=== PATIENT | female | born 1950 | race Caucasian/White ===

== ENCOUNTER → 2018-08-25 | Outpatient (CLI) | payer MEDICARE ==
--- NOTE | 2018-08-29 12:05 | BMR ---
EXAMINATION TYPE: MR breast BILAT wo/w con, US breast axilla RT DATE OF EXAM: 08/25/2018 COMPARISON: Outside imaging dated 06/29/2018 HISTORY: Rt breast ca, palpable lump rt upper outer quadrant, recent biopsy TECHNIQUE: A series of fat and water weighted images in the long and short axis views of both breasts are obtained in conjunction with dynamic contrast MRI with subtraction technique. The patient was i njected with 7 mL intravenous Gadavist gadolinium contrast. Three-dimensional and additional postpr ocessing imaging is created on independent workstation and reviewed during official interpretation of this study. FINDINGS: The breasts are composed of scattered fibroglandular tissue and there is mild bilateral sym metric background parenchymal enhancement. Within the upper outer quadrant of the right breast at the 9:00 position there is a 2.4 x 1.9 x 2.3 cm enhancing mass with spiculated margins at middle depth. The biopsy marker is noted to be at the lateral margin of the mass as there is susceptibility artifac t present. The anterior lateral margin of the mass there is a 3 mm focus that appears to be connected to the primary mass. Just cranial to this mass there is T2 hyperintense and T1 hypointense nonenhanc ing edema. No other suspicious masses are seen within the breasts. No suspicious nonmass enhancement is seen within either breast. No suspicious internal mammary adenop athy within either breast. There is a lymph node within the upper outer quadrant of the right breast in the axillary tail that although only measures 5 mm in short axis appears somewhat rounded in morph ology and is slightly suspicious. This is located approximately 9 cm posterior to the index mass. Oth er bilateral axillary lymph nodes appear nonsuspicious containing fatty rubia. There is a punctate T2 hyperintense nonenhancing probable hepatic cyst. Complementary targeted right upper outer quadrant axillary tail/axillary ultrasound was performed pre operatively to further assess the rounded 5 mm short axis axillary tail lymph node. This appears morp hologically normal on ultrasound with a thin cortex measuring up to 1.5 mm. Findings were discussed w ith the surgeon prior to lumpectomy. IMPRESSION: BI-RADS [id number] right breast carcinoma. The primary mass measures 2.4 cm at the 9:00 position with contiguous 3 mm focus at the anterolateral margin of the mass LT also surgically excised due to the proximity. After targeted right axillary tail ultrasound there are no suspicious intramammary, a xillary or internal mammary lymph nodes within either breast. No MRI evidence of malignancy within th e left breast.
== END | disposition home or self-care (01) ==
LOC: RADMRIMAIN 15:43
PROVIDERS: ATTEND Surgery
DX: C50.411 Malignant neoplasm of upper-outer quadrant of right female breast (principal)
CPT/HCPCS: 82565; 0159T; C8908; A9585; 77059

== ENCOUNTER 2018-08-26 06:35 | Day surgery (SDC) | payer MEDICARE ==
[2018-08-24 08:36] VITALS: BMI 31.2
--- NOTE | 2018-08-25 15:11 | P.GSHP ---
History of Present Illness H&P Date: 08/25/18 Chief Complaint: Right breast cancer 68-year-old female well-known to our service. 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 Ultrasound suggested subcentimeter size however review of the recent mammogram suggests this is 2-3 cm in size. Patient interested in breast conservation. She had a recent second opinion consultation at [facility] and MRI was advised. MRI was subsequently ordered and is being performed later this evening. Patient is ER/WA positive HER-2/leah negative. Past Medical History Past Medical History: Cancer, Hyperlipidemia, Thyroid Disorder Additional Past Medical History / Comment(s): Right breast cancer. History of Any Multi-Drug Resistant Organisms: None Reported Past Surgical History: Bariatric Surgery Past Anesthesia/Blood Transfusion Reactions: No Reported Reaction Past Psychological History: No Psychological Hx Reported Smoking Status: Never smoker Past Alcohol Use History: None Reported Past Drug Use History: None Reported - Past Family History Mother Family Medical History: Cancer Medications and Allergies Home Medications Medication Instructions Recorded Confirmed Type Levothyroxine Sodium [Synthroid] 150 mcg PO SUTUTHSA 08/24/18 08/24/18 History Pravastatin Sodium [Pravachol] 20 mg PO HS 08/24/18 08/24/18 History Allergies Allergy/AdvReac Type Severity Reaction Status Date / Time No Known Allergies Allergy Verified 08/24/18 08:38 Surgical - Exam Physical exam: General: Well-developed, well-nourished HEENT: Normocephalic, sclerae nonicteric Abdomen: Nontender, nondistended Extremities: No edema Neuro: Alert and oriented Right breast with mild induration upper outer quadrant, no adenopathy Left breast without masses or adenopathy Assessment and Plan (1) Breast cancer, right Narrative/Plan: Await MRI findings later this evening. Spoke to radiology. They will review these films immediately tomorrow morning prior to any surgical intervention. Tentatively we will plan right breast lumpectomy with wire localization biopsy, sentinel lymph node injection and biopsy with possible axillary node dissection. Risks of bleeding, infection, seroma, nerve injury, potential need for additional surgeries, positive margins, scarring, dimpling, pain were reviewed with the patient. She is agreeable and wishes to proceed. Certainly MRI findings could change our plans for tomorrow if other abnormalities identified. Status: Acute Code(s): C50.911 - MALIGNANT NEOPLASM OF UNSP SITE OF RIGHT FEMALE BREAST SNOMED Code(s): 806050486
[~2018-08-26 06:35] MED LIST: DEXAMETHASONE SOD PHOSPHATE 10 MG/ML 1 ML VIAL IV ONE; HEPARIN SODIUM,PORCINE 5,000 UNIT/ML 1 ML VIAL SQ ONE; HYDROmorphone 0.5 MG/0.5 ML SYRINGE IVP PRN; LACTATED RINGERS 1,000 ML IV SCH; MIDAZOLAM (PF) 2 MG/2 ML VIAL IV PRN; ONDANSETRON 4 MG/2 ML VIAL IVP ONE; Pre Op ABX Message 1 EACH MISC MISCELLANE ONE
--- NOTE | 2018-08-26 07:50 | P.HPADDEND ---
H&P Addendum H&P Addendum Date: 08/26/18 Patient here today for elective right breast lumpectomy with sentinel lymph node biopsy. Patient's MRI was done late last night. I discussed the MRI results with Dr. Coon this morning by phone. The primary tumor measures approximately 2.4 cm in size. The contralateral breast and axilla appeared normal. The remainder of the right breast shows no definite abnormalities. There is a single suspicious lymph node measuring approximately 5 mm in the axillary tail. No additional suspicious adenopathy is seen. The patient I discussed these MRI findings. We discussed the options of preoperative core biopsy of this 5 mm lymph node. If that I see came back showing lymph node metastasis the option of neoadjuvant treatment would be then offered. The alternative option of proceeding with surgical intervention at this time was once again reviewed. I discussed with radiology the option of wire localization of that suspicious node if it can be seen on ultrasound. The patient is not interested in neoadjuvant chemotherapy at this time. I think it is reasonable to proceed with planned lumpectomy with sentinel lymph node biopsy and possible wire localization of the suspicious node. Patient will clearly be seen by oncology postoperatively to help make determination regarding possible adjuvant chemotherapy.
[2018-08-26 08:15] VITALS: TEMP 97.8
[2018-08-26] MEDS ORDERED: LIDOCAINE 1% INJ 10MG/ML (20 ML MDV) SQ ONE (08:30)
[2018-08-26] MEDS ORDERED: SODIUM BICARB 4% 5 ML VIAL (0.48 MEQ/ML) MISCELLANE ONE (08:30)
[2018-08-26] MEDS ORDERED: fentaNYL (PF) 50 MCG/ML 2 ML AMP ONE (09:06)
[2018-08-26] MEDS ORDERED: MIDAZOLAM 2 MG/2 ML VIAL ONE (09:06)
[2018-08-26] MEDS ORDERED: ceFAZolin IN SWFI 2 GM/20 ML SYRINGE IVP STA (09:06)
[2018-08-26] MEDS ORDERED: PROPOFOL 10 MG/ML 20 ML VIAL IV ONE (09:06)
[2018-08-26] MEDS ORDERED: LIDOCAINE 1% INJ 10MG/ML (20 ML MDV) ONE (09:06)
[2018-08-26] MEDS ORDERED: SODIUM CHLORIDE 0.9% 50 ML with ceFAZolin 2,000 MG IV ONE ×2 (09:25)
[2018-08-26] MEDS ORDERED: LIDOCAINE 2% (PF) 20 MG/ML 10 ML AMP SQ ONE (09:41)
[2018-08-26] MEDS ORDERED: METHYLENE BLUE 10 MG/ML (10 ML VIAL) INJ ONE (09:45)
[2018-08-26] MEDS ORDERED: HYDROcodone/APAP 5-325MG 1 EACH TAB PO PRN (11:09)
[2018-08-26] MEDS ORDERED: NALOXONE 0.4 MG/ML 1 ML VIAL IV PRN (11:09)
--- NOTE | 2018-08-26 11:09 | NM ---
EXAMINATION TYPE: NM sentinel node injection DATE OF EXAM: 08/26/2018 COMPARISON: Outside imaging dated 06/29/2019 HISTORY: Right breast cancer TECHNIQUE AND FINDINGS: The procedure of sentinel lymph node injection was explained to the patient. The benefits, alternatives, and risks were discussed. An informed consent was then obtained. Overlying skin is cleaned with sterile alcohol. Following this, 495 uCi Tc99m Tilmanocept was inject ed in the upper outer aspect of the right nipple intradermally. The patient tolerated the procedure well without any immediate complication. The patient was kept in the radiology department for short stay after the procedure and then taken to surgery for surgical p rocedure what is presumed intraoperative gamma probe will be used for sentinel lymph node detection. IMPRESSION: Right breast radiotracer injection for sentinel node localization as above.
--- NOTE | 2018-08-26 11:14 | MM ---
EXAMINATION TYPE: MG pre op needle loc RT, MG surgical specimen RT DATE OF EXAM: 08/26/2018 COMPARISON: Outside imaging dated 06/29/2018 CLINICAL HISTORY: Right breast cancer TECHNIQUE: Needle localization with wire placement and surgical excision of area of concern in the ri ght breast. FINDINGS: The procedure of needle localization with wire placement and than surgical excision was exp lained to the patient. Benefits, alternatives, and risks were discussed. An informed consent was th en obtained. The shortest pathway for procedure was chosen. Shortest pathway was lateral to medial approach. T he overlying skin was prepped and draped in usual sterile fashion. Lidocaine buffered with bicarbona te was used as anesthetic into the skin and subcutaneous tissue up to the level of area of concern. A 7 cm needle was used. It was placed via a lateral medial approach under mammographic guidance. Allen bsequent 90 degrees mammogram show the needle to be in satisfactory position relative to the targeted area. At this point, wire was placed and the needle was withdrawn. The wire was fixed to patient's skin. Images were marked for surgeon. The patient tolerated the procedure well without any immediate complication. The patient was kept in the radiology department for short stay after the procedure and then taken to surgery for surgical e xcision. Targeted mass, biopsy marker and wire are identified in specimen mammogram. Posterior media l margin appears the closest of all margins. The patient was kept in hospital for short stay after th e procedure and then discharged home in stable condition. IMPRESSION: Successful, uncomplicated needle localization with wire placement and surgical excision o f targeted mass, biopsy marker, and wire in the right breast, full pathology results to follow.
--- NOTE | 2018-08-26 11:25 | P.PCN ---
Date of Procedure: 08/26/18 Procedure(s) Performed: PREOPERATIVE DIAGNOSIS: Rectal bleeding POSTOPERATIVE DIAGNOSIS: Hypertrophied anal papilla PROCEDURE: Colonoscopy with snare polypectomy ANESTHESIA: MAC SURGEON: Andrew Kruse M.D. SPECIMENS: Anal papilla ENDOSCOPIC PROCEDURE: The patient was placed on the endoscopy table in the left decubitus position. The Olympus colonoscope was inserted into the anus and passed under direct visualization to the base of the cecum. The appendiceal orifice was visualized. From that point the scope was slowly withdrawn inspecting all surfaces carefully. There were no neoplastic inflammatory or polypoid lesions throughout the cecum, ascending, transverse, descending, sigmoid and rectum. Retroflexion at the anus/distal rectum revealed a hypertrophied anal papilla. This was removed using the snare with cautery technique. There was no visible diverticulosis. There were small internal and external hemorrhoids in the right posterior position and anterior position that appeared free of any recent bleeding. The anal papilla itself however was indurated and was likely the source of recent bleeding. The patient 's excessive mucousy drainage may have been on the basis of the papilla. No fistula was identified. Digital rectal examination was otherwise normal. The patient was taken to the recovery room in stable condition per anesthesia guidelines. RECOMMENDATIONS: Await biopsy results. Monitor patient's symptoms.
--- NOTE | 2018-08-26 11:28 | P.OP ---
Date of Procedure: 08/26/18 Procedure(s) Performed: PREOPERATIVE DIAGNOSIS: Right breast cancer POSTOPERATIVE DIAGNOSIS: Same PROCEDURE: Right Breast wire localization lumpectomy with sentinel lymph node biops SURGEON: Uriah EBL: Minimal ANESTHESIA: General COMPLICATIONS: None OPERATIVE PROCEDURE: Patient was placed on the operating room table in the supine position. 2 mL of methylene blue was injected into the subareolar space. The breast was then massaged for 5 minutes. The breast was prepped and draped in usual sterile fashion. The right axilla was addressed at that time. The hot spot in the right axilla was identified. A small curvilinear incision was made using the scalpel. Dissection down through the subcutaneous tissues took place using electrocautery. Using the neoprobe I identified a total of 4 sentinel lymph nodes. 2 of these were blue in color. These were all removed and sent to pathology for close examination. Frozen sections from these lymph nodes were negative for metastatic disease. No bleeding was seen. The subcutaneous tissues were closed using 3-0 Vicryl sutures. The skin was closed using 4-0 Monocryl sutures. The wire entrance site was then addressed. This was present at the 9:00 location. A curvilinear incision was made adjacent to the wire entrance site. I followed the wire down into the breast tissue. An adequate lumpectomy specimen then took place around the wire. Margins of 1.5-2 cm worth attempted to be achieved. Palpation of the specimen suggested that the posterior and inferior margins were somewhat close. I took an additional margin posteriorly and inferiorly and these margins were painted the appropriate color on the new margin side. The initial specimen was also painted the appropriate 6 colors. Clips were used to identify the lumpectomy cavity. The clip was confirmed to be within the lumpectomy specimen by radiology. The subcutaneous tissues were closed using 3-0 Vicryl sutures. The skin was closed using a running 4-0 Monocryl stitch. Skin glue and sterile dressings were then applied. DISPOSITION: Stable to recovery room
[2018-08-26 11:32] VITALS: RESP 18
[2018-08-26] MEDS ORDERED: HYDROcodone/APAP 5-325MG 1 EACH TAB PO ONE (12:19)
[2018-08-26 13:41] VITALS: BP 139/81; PULSE 73
--- NOTE | 2018-09-01 09:32 | USB ---
Reason for exam: additional evaluation requested from prior study. History: Patient is nulliparous. US Breast Axilla RT EXAMINATION TYPE: MR breast BILAT wo/w con, US breast axilla RT DATE OF EXAM: 08/25/2018 COMPARISON: Outside imaging dated 06/29/2018 HISTORY: Rt breast ca, palpable lump rt upper outer quadrant, recent biopsy TECHNIQUE: A series of fat and water weighted images in the long and short axis views of both breasts are obtained in conjunction with dynamic contrast MRI with subtraction technique. The patient was injected with 7 mL intravenous Gadavist gadolinium contrast. Three-dimensional and additional postprocessing imaging is created on independent workstation and reviewed during official interpretation of this study. FINDINGS: The breasts are composed of scattered fibroglandular tissue and there is mild bilateral symmetric background parenchymal enhancement. Within the upper outer quadrant of the right breast at the 9:00 position there is a 2.4 x 1.9 x 2.3 cm enhancing mass with spiculated margins at middle depth. The biopsy marker is noted to be at the lateral margin of the mass as there is susceptibility artifact present. The anterior lateral margin of the mass there is a 3 mm focus that appears to be connected to the primary mass. Just cranial to this mass there is T2 hyperintense and T1 hypointense nonenhancing edema. No other suspicious masses are seen within the breasts. No suspicious nonmass enhancement is seen within either breast. No suspicious internal mammary adenopathy within either breast. There is a lymph node within the upper outer quadrant of the right breast in the axillary tail that although only measures 5 mm in short axis appears somewhat rounded in morphology and is slightly suspicious. This is located approximately 9 cm posterior to the index mass. Other bilateral axillary lymph nodes appear nonsuspicious containing fatty rubia. There is a punctate T2 hyperintense nonenhancing probable hepatic cyst. Complementary targeted right upper outer quadrant axillary tail/axillary ultrasound was performed preoperatively to further assess the rounded 5 mm short axis axillary tail lymph node. This appears morphologically normal on ultrasound with a thin cortex measuring up to 1.5 mm. Findings were discussed with the surgeon prior to lumpectomy. IMPRESSION: BI-RADS [id number] right breast carcinoma. The primary mass measures 2.4 cm at the 9:00 position with contiguous 3 mm focus at the anterolateral margin of the mass LT also surgically excised due to the proximity. After targeted right axillary tail ultrasound there are no suspicious intramammary, axillary or internal mammary lymph nodes within either breast. No MRI evidence of malignancy within the left breast. ASSESSMENT: Benign, BI-RAD 2 RECOMMENDATION: Localization and excision of the right breast.
== END 2018-08-26 13:41 | disposition home or self-care (01) ==
LOC: OR 06:35
PROVIDERS: ATTEND Surgery
DX: C50.411 Malignant neoplasm of upper-outer quadrant of right female breast (principal); Z17.0 Estrogen receptor positive status [ER+]; E78.5 Hyperlipidemia, unspecified; E03.9 Hypothyroidism, unspecified; E66.9 Obesity, unspecified; Z68.31 Body mass index [BMI] 31.0-31.9, adult; Z98.84 Bariatric surgery status; Z79.890 Hormone replacement therapy; Z79.899 Other long term (current) drug therapy
CPT/HCPCS: 76098; 19281; 76642; 38792; 19301; 38525; A9520; J2250; J1644; J1100; J2405; J2001; Q9968; J3010; J0690; J2704

== ENCOUNTER → 2019-01-18 | Outpatient (CLI) | payer MEDICARE ==
--- NOTE | 2019-01-18 14:08 | USB ---
Reason for exam: clinical finding. History: Patient has history of breast cancer at age 68 and is nulliparous. Malignant MG pre op needle loc RT of the right breast, August 26, 2018. 2 lumpectomies of the right breast, August 26, 2018. Indicated problem(s): large axillary lymph nodes in the right breast. Physical Findings: Nurse Summary: right axilla palpable node, 1 x 1cm, movable, non-tender with palpable, 1.5 x 2cm at axilla scar (nurse ts). US Breast Axilla RT Right axilla breast ultrasound demonstrates a 3.8 x 2.6 x 2.6cm oval, cystic lesion at axilla possibly centrally necrotic, biopsy recommended, suspicious, much less likely seroma and a 1.6 x 1.1 x 0.5cm cystic lesion at 10 o'clock possibly small seroma. These results were verbally communicated with the patient and result sheet given to the patient on 01/18/19. ASSESSMENT: Suspicious, BI-RAD 4 RECOMMENDATION: Ultrasound core biopsy of the right breast. (right axilla) Called Dr. Howe with mammographic findings. PRELIMINARY REPORT CALLED AND FAXED TO DR. HOWE ON 01/18/19.
== END | disposition home or self-care (01) ==
LOC: RADUSWWP 12:27
PROVIDERS: ATTEND Internal Medicine Hematology & Oncology
DX: N63.10 Unspecified lump in the right breast, unspecified quadrant (principal); N60.01 Solitary cyst of right breast; Z85.3 Personal history of malignant neoplasm of breast

== ENCOUNTER 2019-01-23 07:47 | Day surgery (SDC) | payer MEDICARE ==
[2019-01-23 08:15] VITALS: TEMP 98
[2019-01-23] MEDS ORDERED: ALPRAZolam 0.25 MG TAB PO ONE (08:17)
[2019-01-23 09:43] VITALS: BP 125/70; PULSE 57; RESP 14
--- NOTE | 2019-01-23 11:09 | US ---
EXAMINATION TYPE: US biopsy soft tissue/muscle, US asp abscess/hemat/cyst DATE OF EXAM: 01/23/2019 HISTORY: Right axillary adenopathy, history of breast cancer, palpable abnormality. FINDINGS: Maximal barrier technique was utilized. The skin overlying a suitable path to the patient' s right axillary adenopathy was localized with ultrasound and the overlying skin prepped and draped. Ultrasound was utilized with sterile technique. Lidocaine was used for local anesthesia. A skin ni ck was made with a scalpel. An 18-gauge needle was advanced under direct ultrasound guidance and cor e specimen obtained of the mass. A poor specimen was obtained likely due to cystic quality of the ad enopathy. Specimen submitted in formalin to Pathology. Fine-needle aspiration then performed using si milar technique with a 21-gauge needle, approximately 10 cc of serous fluid were aspirated and submit sukhdev to pathology. Following the procedure, hemostasis achieved and the patient is discharged in stabl e condition without complication. IMPRESSION:STATUS POST ULTRASOUND GUIDED CORE BIOPSY OF right axillary adenopathy, followed by fine-n eedle aspiration. PATHOLOGY IS PENDING. THIS PROCEDURE IS PERFORMED BY THE UNDERSIGNED.
== END 2019-01-23 09:50 | disposition home or self-care (01) ==
LOC: RADPROMAIN 07:47
PROVIDERS: ATTEND Internal Medicine Hematology & Oncology
DX: R59.0 Localized enlarged lymph nodes (principal); N63.0 Unspecified lump in unspecified breast; Z85.3 Personal history of malignant neoplasm of breast
CPT/HCPCS: 10160; 20206; 38505; 76942; 88173; 88305; 88341; 88342

== ENCOUNTER → 2019-03-20 | Outpatient (CLI) | payer MEDICARE ==
--- NOTE | 2019-03-21 18:51 | BD ---
EXAMINATION TYPE: Axial Bone Density DATE OF EXAM: 03/20/2019 COMPARISON: NONE CLINICAL HISTORY: Breast carcinoma, post menopausal with hormonal replacement therapy Height: 60.50 Weight: 156 FRAX RISK QUESTIONS: Alcohol (3 or more units per day): no Family History (Parent hip fracture): no Glucocorticoids (More than 3mos): no (Ex: prednisone, prednisolone, methylprednisolone, dexamethasone, and hydrocortisone). History of Fracture in Adulthood: yes, finger Secondary Osteoporosis: 1. Type 1 Diabetes: no 2. Hyperthyroidism: possibly; not positively sure 3. Menopause before 45: no 4. Malnutrition: no 5. Chronic liver disease: no Rheumatoid Arthritis: no Current Tobacco Use: no RISK FACTORS HISTORY OF: Family History of Osteoporosis: no Active: yes Diet low in dairy products/other sources of calcium: no Postmenopausal woman: yes Take estrogen and/or progesterone medications: no Lost more than 2 inches in height since high school: no Frequent falls: no Poor Health: no, other than breast CA Hyperparathyroidism: no Adrenal Insufficiency: no MEDICATIONS: Thyroid Medications: yes Which medication: Levothyroxine How Long: about 40 years Osteoporosis Medications: no Additional Medications: cholesterol med Additional History: breast CA; radiation/chemo ; "sleeve" surgery for weight loss; (will start Femara soon, not yet started, hence diagnosis of post-menopause WITH HRT) EXAM MEASUREMENTS: Bone mineral densitometry was performed using the [employer] System. Bone mineral density as measured about the Lumbar spine is: ----- L1-L4(G/cm2): 1.060 T Score Values are as follows: ----- L2: -1.3 ----- L3: -0.4 ----- L4: -1.2 ----- L1-L4: -1.0 Bone mineral density BASELINE Bone mineral density about the R hip (g/cm2): 0.846 Bone mineral density about the L hip (g/cm2): 0.870 T Score values are as follows: -----R Neck: -1.4 -----L Neck: -1.2 -----R Total: -0.6 -----L Total: -0.4 Bone mineral density BASELINE IMPRESSION: Osteopenia (T Score between -2.5 and -1). There is slightly increased risk of fracture and the patient may be considered for treatment. Re-Screen 2-5 years. NOTE: T-SCORE=SD OF THE YOUNG ADULT MEAN.
== END | disposition home or self-care (01) ==
LOC: RADBDWWP 13:06
PROVIDERS: ATTEND Internal Medicine Hematology & Oncology
DX: M85.851 Other specified disorders of bone density and structure, right thigh (principal); M85.852 Other specified disorders of bone density and structure, left thigh; M85.88 Other specified disorders of bone density and structure, other site; C50.411 Malignant neoplasm of upper-outer quadrant of right female breast; Z79.890 Hormone replacement therapy
CPT/HCPCS: 77080

== ENCOUNTER 2019-06-23 09:23 | Day surgery (SDC) | payer MEDICARE ==
[2019-06-22 08:57] VITALS: BMI 30.2
[~2019-06-23 09:23] MED LIST changes: -DEXAMETHASONE SOD PHOSPHATE 10 MG/ML 1 ML VIAL IV ONE; -HEPARIN SODIUM,PORCINE 5,000 UNIT/ML 1 ML VIAL SQ ONE; -HYDROmorphone 0.5 MG/0.5 ML SYRINGE IVP PRN; +LIDOCAINE 1% 20 ML VIAL (10MG/ML) FOR IV START INTRADERMA PRN; -MIDAZOLAM (PF) 2 MG/2 ML VIAL IV PRN; -ONDANSETRON 4 MG/2 ML VIAL IVP ONE; -Pre Op ABX Message 1 EACH MISC MISCELLANE ONE
[2019-06-23 09:41] VITALS: TEMP 97.8
[2019-06-23] MEDS ORDERED: LACTATED RINGERS 1,000 ML IV ONE (09:49)
[2019-06-23] MEDS ORDERED: PROPOFOL 10 MG/ML 20 ML VIAL IV ONE (10:07)
--- NOTE | 2019-06-23 10:30 | P.GSHP ---
History of Present Illness H&P Date: 06/23/19 Chief Complaint: gerd Patient today for upper endoscopy. She has had increasing reflux. She was unable to take her PPIs because of an interaction with her other medications. No vomiting. Past Medical History Past Medical History: Cancer, Hyperlipidemia, Thyroid Disorder Additional Past Medical History / Comment(s): Right breast cancer 2018-surg. & chemo & radiation, abd. pain for last 6 months History of Any Multi-Drug Resistant Organisms: None Reported Past Surgical History: Bariatric Surgery, Breast Surgery Additional Past Surgical History / Comment(s): Right lumpectomy, gastric sleeve Past Anesthesia/Blood Transfusion Reactions: No Reported Reaction Smoking Status: Never smoker - Past Family History Mother Family Medical History: Cancer Medications and Allergies Home Medications Medication Instructions Recorded Confirmed Type Levothyroxine Sodium [Synthroid] 150 mcg PO SUTUTHSA 08/24/18 06/22/19 History Pravastatin Sodium [Pravachol] 20 mg PO HS 08/24/18 06/22/19 History Letrozole [Femara] 2.5 mg PO DAILY 06/22/19 06/22/19 History Oxybutynin ER [Ditropan Xl] 10 mg PO DAILY 06/22/19 06/22/19 History Allergies Allergy/AdvReac Type Severity Reaction Status Date / Time No Known Allergies Allergy Verified 06/22/19 08:39 Surgical - Exam Vital Signs Temp Pulse Resp BP Pulse Ox 97.8 F 67 18 158/69 97 06/23/19 09:40 06/23/19 09:40 06/23/19 09:40 06/23/19 09:40 06/23/19 09:40 Physical exam: General: Well-developed, well-nourished HEENT: Normocephalic, sclerae nonicteric Abdomen: Nontender, nondistended Extremities: No edema Neuro: Alert and oriented Assessment and Plan (1) GERD (gastroesophageal reflux disease) Narrative/Plan: Patient GERD symptoms and history of previous sleeve gastrectomy. We'll proceed with upper endoscopy. Current Visit: Yes Status: Acute Code(s): K21.9 - GASTRO-ESOPHAGEAL REFLUX DISEASE WITHOUT ESOPHAGITIS SNOMED Code(s): 364688071
--- NOTE | 2019-06-23 10:37 | P.PCN ---
Date of Procedure: 06/23/19 Procedure(s) Performed: Preoperative Dx: GERD Postoperative Dx: Gastritis, mild distal esophagitis Procedure: EGD with Bx Anesthesia: Sedation Endoscopist: Dr. Kruse Specimens: Antrum, distal esophagus Endoscopic Procedure: The patient was on the endoscopy table in the left decubitus position. The Olympus gastroscope was inserted into the oropharynx and passed under direct visualization to the region of the third portion of the duodenum. From that point the scope was slowly withdrawn inspecting all surfaces carefully. There were no neoplastic inflammatory or polypoid lesions throughout the duodenum. The pylorus was widely patent. The stomach was carefully inspected. There was stratus present. A biopsy of the antrum took place to rule out H. pylori. No retroflexion took place because of the patient's previous sleeve. The sleeve itself appeared appropriate sized. There was no obvious hiatal hernia seen. At the distal esophagus there was evidence of mild distal esophagitis. There was a non-circumferential area of inflammation. This did not extend more than a few millimeters up above the Z line. There was no evidence of stricture. The remainder the esophagus appear normal. The patient was then taken to the recovery room in stable condition per anesthesia guidelines. Recommendations: Will start Pepcid twice a day. We'll add Carafate if symptoms persist.
[2019-06-23 10:45] VITALS: RESP 16
[2019-06-23 11:15] VITALS: BP 138/75; PULSE 66
== END 2019-06-23 11:19 | disposition home or self-care (01) ==
LOC: ORWHC2ENDO 09:23
PROVIDERS: ATTEND Surgery
DX: K29.50 Unspecified chronic gastritis without bleeding (principal); K22.10 Ulcer of esophagus without bleeding; E78.5 Hyperlipidemia, unspecified; E07.9 Disorder of thyroid, unspecified; C50.919 Malignant neoplasm of unspecified site of unspecified female breast; Z92.21 Personal history of antineoplastic chemotherapy; Z92.3 Personal history of irradiation; Z98.84 Bariatric surgery status; Z79.811 Long term (current) use of aromatase inhibitors; Z79.890 Hormone replacement therapy; Z79.899 Other long term (current) drug therapy
CPT/HCPCS: 43239; 88305; 88342; J2704; 88341

== ENCOUNTER → 2020-06-18 | Outpatient (CLI) | payer MEDICARE ==
[2020-06-18 13:50] VITALS: BMI 30.9
[2020-06-18 15:57] VITALS: BP 164/79; PULSE 69; RESP 16; TEMP 98.3
--- NOTE | 2020-06-18 16:41 | P.BASOAP ---
Subjective Progress Note Date: 06/18/20 Principal diagnosis: Morbid obesity Patient returns for reevaluation. Underwent upper endoscopy last June. Was started on Pepcid twice a day at that time. Patient returns now stating she is having pain after eating in the epigastric region. Some burning. Some reflux. Patient states she has not been taking her antiacids as her prescription ran out. She thinks her symptoms were gone while taking her antiacids. Mild weight gain recently. Denies vomiting. Objective - Vital Signs Vital signs: Vital Signs Temp 98.3 F 06/18/20 15:52 Pulse 69 06/18/20 15:52 Resp 16 06/18/20 15:52 BP 164/79 06/18/20 15:52 Pulse Ox Intake & Output 06/17/20 06/18/20 06/18/20 18:59 06:59 18:59 Weight 74.389 kg - Exam Abdomen: Soft, nontender, nondistended Assessment/Plan (1) GERD (gastroesophageal reflux disease) Narrative/Plan: Patient with epigastric pain and some reflux. Resume antiacid therapy. Patient will contact me if her symptoms do not improve. Follow-up 2 months. Plan: Date: 06/18/20 Initial Weight: 102.058 kg Initial BMI: 42.5 Current Weight: 74.389 kg Current BMI: 30.9 Type of Surgery: Total Volume in Band: Previous Volume: Volume Removed: Volume Added: Band Size:
== END | disposition home or self-care (01) ==
LOC: BARWHC3 13:33
PROVIDERS: ATTEND Surgery
DX: E66.01 Morbid (severe) obesity due to excess calories (principal); K21.9 Gastro-esophageal reflux disease without esophagitis; Z68.41 Body mass index [BMI] 40.0-44.9, adult
CPT/HCPCS: 99211

== ENCOUNTER → 2020-07-08 | Outpatient (CLI) | payer MEDICARE ==
--- NOTE | 2020-07-08 14:57 | MM ---
Reason for exam: additional evaluation requested from prior study. Last mammogram was performed 19 years ago. History: Patient is postmenopausal, has history of breast cancer at age 68, and is nulliparous. Malignant MG pre op needle loc RT of the right breast, August 26, 2018. 2 lumpectomies of the right breast, August 26, 2018. Taking antineoplastic for 2 years. Physical Findings: Nurse did not find any significant physical abnormalities on exam. MG 3D Diag Mammo W/Cad DESTINI Bilateral CC and MLO view(s) were taken. Prior study comparison: January 18, 2019, right breast US breast axilla RT. August 26, 2018, right breast US breast axilla RT. August 25, 2018, bilateral MR breast bilat wo/w con. The breast tissue is heterogeneously dense. This may lower the sensitivity of mammography. Finding: Architectural distortion in the right breast consistent with known lumpectomy changes. There is a chronic nodularity in the right breast. There is no discrete abnormality. These results were verbally communicated with the patient and result sheet given to the patient on 07/08/20. ASSESSMENT: Benign, BI-RAD 2 RECOMMENDATION: Follow-up diagnostic mammogram of both breasts in 1 year.
== END | disposition home or self-care (01) ==
LOC: RADMAMWWP 13:46
PROVIDERS: ATTEND Radiology Radiation Oncology
DX: C50.411 Malignant neoplasm of upper-outer quadrant of right female breast (principal); Z92.3 Personal history of irradiation; Z17.0 Estrogen receptor positive status [ER+]
CPT/HCPCS: 77066; G0279; 77062

== ENCOUNTER → 2020-12-31 | Outpatient (CLI) | payer MEDICARE ==
[2020-12-31 14:41] VITALS: BP 181/84; PULSE 71; TEMP 98.4; BMI 34.2
--- NOTE | 2020-12-31 15:57 | P.BASOAP ---
Subjective Progress Note Date: 12/31/20 Principal diagnosis: Morbid obesity Patient returns for recheck. Was last seen in June. Patient resumed her antiacids and her GERD symptoms and odynophagia resolved. Now taking antiacids once daily. Recently she met with a dietitian at [facility]. She has gained 15 pounds although states she is not eating much at all. Objective - Vital Signs Vital signs: Vital Signs Temp 98.4 F 12/31/20 14:39 Pulse 71 12/31/20 14:39 Resp BP 181/84 12/31/20 14:39 Pulse Ox Intake & Output 12/30/20 12/31/20 12/31/20 18:59 06:59 18:59 Weight 82.1 kg - Exam Abdomen: Soft, nontender, nondistended Assessment/Plan (1) Morbid obesity Narrative/Plan: Patient doing well. She has had some weight gain. Discussed exercise regimen and increasing variety of different exercises. Continue antiacids. Plan: Date: 12/31/20 Initial Weight: 102.058 kg Initial BMI: 42.5 Current Weight: 82.1 kg Current BMI: 34.2 Type of Surgery: Total Volume in Band: Previous Volume: Volume Removed: Volume Added: Band Size:
== END ==
LOC: BARWHC3 13:29
PROVIDERS: ATTEND Surgery
DX: E66.01 Morbid (severe) obesity due to excess calories (principal); Z68.34 Body mass index [BMI] 34.0-34.9, adult
CPT/HCPCS: 99211

== ENCOUNTER → 2021-03-24 | Outpatient (CLI) | payer MEDICARE ==
--- NOTE | 2021-03-24 14:38 | MM ---
Reason for exam: additional evaluation requested from prior study. Last mammogram was performed 9 months ago. History: Patient is postmenopausal, has history of breast cancer at age 68, and is nulliparous. Malignant MG pre op needle loc RT of the right breast, August 26, 2018. 2 lumpectomies of the right breast, August 26, 2018. Taking antineoplastic for 2 years. Physical Findings: Nurse did not find any significant physical abnormalities on exam. MG 3D Diag Mammo W/Cad DESTINI Bilateral CC and MLO view(s) were taken. Prior study comparison: July 08, 2020, bilateral MG 3d diag mammo w/cad DESTINI. July 11, 2001, right breast special view mammogram. There are scattered fibroglandular densities. Right post operative changes. These results were verbally communicated with the patient and result sheet given to the patient on 03/24/21. ASSESSMENT: Benign, BI-RAD 2 RECOMMENDATION: Follow-up diagnostic mammogram of both breasts in 1 year.
--- NOTE | 2021-03-24 15:02 | BD ---
EXAMINATION TYPE: Axial Bone Density DATE OF EXAM: 03/24/2021 COMPARISON: 03.20.2019 CLINICAL HISTORY: 70 YR OLD FEMALE......ICD-10 CODE: Z79.890 POST MENOPAUSAL Height: 60 Weight: 178 FRAX RISK QUESTIONS: Alcohol (3 or more units per day): Family History (Parent hip fracture): Glucocorticoids (More than 3mos): (Ex: prednisone, prednisolone, methylprednisolone, dexamethasone, and hydrocortisone). History of Fracture in Adulthood: Secondary Osteoporosis: 1. Type 1 Diabetes: 2. Hyperthyroidism: 3. Menopause before 45: 4. Malnutrition: 5. Chronic liver disease: Rheumatoid Arthritis: Current Tobacco Use: RISK FACTORS HISTORY OF: RT FINGER AT AGE 52 Postmenopausal woman: YES, IN HER 50s Hyperparathyroidism: NO Adrenal Insufficiency: NO MEDICATIONS: Thyroid Medications: YES, SYNTHROID, FOR ABOUT 50 YRS NOW Additional Medications: HX OF CHEMO AND RADIATION, RT BREAST CANCER, REFLUX MEDS, STATIN FOR CHOLESTE ROL,VIT D AND CALCIUM Additional History: HX OF RT BREAST CANCER, REFLUX, CHOLESTEROL, EXAM MEASUREMENTS: Bone mineral densitometry was performed using the [employer]. Bone mineral density as measured about the Lumbar spine is: ----- L1-L4(G/cm2): 1.146 T Score Values are as follows: ----- L1: -0.4 ----- L2: 0.2 ----- L3: -0.3 ----- L4: -0.7 ----- L1-L4: -0.3 Bone mineral density has: Increased 7.8% since study of: 03.20.2019 Bone mineral density about the R hip (g/cm2): 0.954 Bone mineral density about the L hip (g/cm2): 0.927 T Score values are as follows: -----R Neck: -1.5 -----L Neck: -1.1 -----R Total: -0.4 -----L Total: -0.6 Bone mineral density has: Decreased -0.2% since study of: 03.20.2019 FRAX%s: THERE IS A 14.5% CHANCE FOR A MAJOR OSTEOPOROTIC FX AND A 1.8% FOR HIP......PROBABILITY FO R FX IN 10 YRS TIME IMPRESSION: Osteopenia. NOTE: T-SCORE=SD OF THE YOUNG ADULT MEAN.
== END | disposition home or self-care (01) ==
LOC: RADMAMWWP 13:28
PROVIDERS: ATTEND Internal Medicine Hematology & Oncology
DX: M85.80 Other specified disorders of bone density and structure, unspecified site (principal); N64.89 Other specified disorders of breast; Z78.0 Asymptomatic menopausal state; Z85.3 Personal history of malignant neoplasm of breast
CPT/HCPCS: 77080; 77066; G0279; 77062

== ENCOUNTER → 2021-06-23 | Outpatient (CLI) | payer MEDICARE ==
--- NOTE | 2021-06-23 10:01 | CT ---
EXAMINATION TYPE: CT chest w con DATE OF EXAM: 06/23/2021 COMPARISON: None HISTORY: Right sided lower tenderness. History of breast cancer CT DLP: 518.7 mGycm Automated exposure control for dose reduction was used. CONTRAST: CT scan of the chest is performed with IV Contrast, patient injected with 100 mL of Isovue 300. FINDINGS: LUNGS: Right lower lobe pulmonary mass measuring 3.3 cm in greatest dimension. No additional nodules or masses seen. No volume loss or infiltrate. MEDIASTINUM: There are no greater than 1 cm hilar or mediastinal lymph nodes. No pericardial effusi on is seen. Thoracic aorta is of normal caliber. The heart is not enlarged. UPPER ABDOMEN: Hiatal hernia. Gastric sleeve changes. OTHER: No additional significant abnormality is seen. IMPRESSION: 1. Right lower lobe mass. Correlate with PET/CT.
== END | disposition home or self-care (01) ==
LOC: RADCTMAIN 08:15
PROVIDERS: ATTEND Family Medicine
DX: R91.8 Other nonspecific abnormal finding of lung field (principal); Z85.3 Personal history of malignant neoplasm of breast
CPT/HCPCS: 82565; 84520; 71260; Q9967

== ENCOUNTER → 2021-07-04 | Outpatient (CLI) | payer MEDICARE ==
--- NOTE | 2021-07-07 08:11 | PE ---
EXAMINATION TYPE: PET CT fusion skull to thigh DATE OF EXAM: 07/04/2021 COMPARISON: Chest CT June 23, 2021 HISTORY: Solitary pulmonary nodule, abnormal CT TECHNIQUE: Following the intravenous administration of 8.1 mCi of F-18 FDG, whole body images are pe rformed from the skull base to the midthigh. Images are reviewed on the computer in the coronal, axi al, and sagittal planes. Reconstructed rotating images are created on independent workstation and re viewed on the computer. A localization and attenuation correction CT is performed in conjunction wi th the PET scan. Blood glucose level equals 96 SCAN: Initial Scan FINDINGS: SKULL BASE AND NECK: Enlarged thyroid with heterogeneous increased hypermetabolic uptake, correlate for diffuse goiter and/or hyperthyroidism. No additional areas of abnormal hypermetabolic uptake. CHEST, MEDIASTINUM, AND HILAR REGION: Persistent 3.4 x 2.3 cm right lower lobe mass axial image 98 is ametabolic. No areas of abnormal hypermetabolic uptake. ABDOMEN AND PELVIS: No adrenal masses. No areas of abnormal hypermetabolic uptake. Normal excretion. OSSEOUS STRUCTURES: No abnormal hypermetabolic uptake. OTHER CT: Nasal septum deviated to right of midline. Surgical changes lateral aspect of the right kaylen ast. Surgical changes from gastric sleeve procedure. There is small to moderate size hiatal hernia redemon strated. IMPRESSION: No suspicious hypermetabolic uptake in the persistent 3.4 cm right lower lobe mass. A low -grade neoplasm is not entirely excluded. Advise short-term CT follow-up in 6 months time to reassess .
== END | disposition home or self-care (01) ==
LOC: RADPETMAIN 15:46
PROVIDERS: ATTEND Physician Assistant Medical
DX: R91.1 Solitary pulmonary nodule (principal); R07.81 Pleurodynia; Z85.3 Personal history of malignant neoplasm of breast
CPT/HCPCS: 78815; A9552

== ENCOUNTER → 2021-07-28 | Outpatient (CLI) | payer MEDICARE ==
--- NOTE | 2021-07-28 16:22 | US ---
EXAMINATION TYPE: US thyroid st tissue head/neck DATE OF EXAM: 07/28/2021 COMPARISON: NONE CLINICAL HISTORY: 71-year-old female E04.1 Thyroid nodule. GLAND SIZE: Right Lobe: 6.5x2.9x2.6 cm Overall Parenchyma: Mild heterogenous Left Lobe: 5.8x2.3x2.8 cm Overall Parenchyma: Mild heterogenous Isthmus Thickness: 0.7 cm NODULES RIGHT: # of nodules measured on right: 0 LEFT: # of nodules measured on left: 0 ISTHMUS: # of nodules measured in the isthmus: 0 Bilateral neck scanned, no evidence of lymphadenopathy. IMPRESSION: Thyromegaly with slightly heterogeneous parenchyma may reflect goiter or diffuse thyroiditis. No disc rete nodules.
== END | disposition home or self-care (01) ==
LOC: RADUSWWP 14:10
PROVIDERS: ATTEND Family Medicine
DX: E04.9 Nontoxic goiter, unspecified (principal)
CPT/HCPCS: 76536

== ENCOUNTER → 2021-10-10 | Outpatient (CLI) | payer MEDICARE ==
[2021-10-10 10:24] LABS: African American GFR (CKD) >90 (>60 ml/min/1.73 sqM); Blood Urea Nitrogen 13 mg/dL (7-17); Non-African American GFR(CKD) 84 (>60 ml/min/1.73 sqM)
--- NOTE | 2021-10-10 12:01 | CT ---
EXAMINATION TYPE: CT chest w con DATE OF EXAM: 10/10/2021 COMPARISON: 06/23/2021 and PET/CT 07/04/2021 HISTORY: 71-year-old female Z03.89 Obs mets, C50.411 Lung ca,R91.1 lung nodule. TECHNIQUE: Contiguous axial scanning of the chest after the administration of 100 ml mL of Isovue 300 . Coronal/sagittal reconstructions performed. CT DLP: 551mGycm. Automatic exposure control utilized for a dose reduction. FINDINGS: Spiculated area lateral right breast with surgical clips. Additional surgical clips in the right axil la. Findings suggest postsurgical change. Appropriate ongoing annual mammographic follow-up recommend ed. Heart upper limits of normal in size without pericardial effusion. Ectatic ascending aorta 3.6 cm. There is conventional arterial vessel branching anatomy. Generalized fullness of the thyroid gland. We note recent thyroid ultrasound 07/28/2021. Please refer to findings on that exam. No thoracic lymphadenopathy by CT size criteria. Redemonstrated oval circumscribed 3.6 x 2.8 cm mass of the right lower lobe versus 3.5 x 2.4 cm on . Mixed internal density. Possibly some internal fat density. Some strandy possible atelectasis radiating peripherally from this lesion. No consolidation or pleural effusion. Post surgical change of sleeve gastrectomy. There is a small to moderate-sized hiatal hernia noted. O therwise, visualized upper abdomen shows mild stool burden. Bones: Scattered moderate degenerative disc disease throughout the thoracic spine in addition the low er thoracic spine. IMPRESSION: 1. Mixed density circumscribed mass of the right lower lobe measures 3.6 x 2.8 cm, stable to minimall y increased fullness from three months ago where we measure it at 3.5 x 2.4 cm). Given that there may be some internal fat density, a pulmonary hamartoma is possible. Continued follow-up recommended to exclude low-grade neoplasm. 2. Status post sleeve gastrectomy. Small to moderate size hiatal hernia noted. 3. Surgical changes of prior lumpectomy and right axillary node dissection. Appropriate annual mammog raphic surveillance recommended.
== END | disposition home or self-care (01) ==
LOC: RADCTMAIN 09:35
PROVIDERS: ATTEND Internal Medicine Hematology & Oncology
DX: C50.411 Malignant neoplasm of upper-outer quadrant of right female breast (principal); R91.8 Other nonspecific abnormal finding of lung field; K44.9 Diaphragmatic hernia without obstruction or gangrene; Z93.1 Gastrostomy status
CPT/HCPCS: 82565; 84520; 71260; 36415; Q9967

== ENCOUNTER → 2022-04-16 | Outpatient (CLI) | payer MEDICARE ==
[2022-04-16 11:22] LABS: African American GFR (CKD) >90 (>60 ml/min/1.73 sqM); Blood Urea Nitrogen 12 mg/dL (7-17); Non-African American GFR(CKD) 90 (>60 ml/min/1.73 sqM)
--- NOTE | 2022-04-16 12:53 | CT ---
EXAMINATION TYPE: CT chest w con CT DLP: 472.2 mGycm, Automated exposure control for dose reduction was used. DATE OF EXAM: 04/16/2022 11:47 AM COMPARISON: 10/10/2021 CT, PET/CT 07/04/2022 CLINICAL INDICATION:Female, 72 years old with history of R91.1 lung nodule, Lung nodule TECHNIQUE: Multiple axial images were obtained through the chest. Sagittal and coronal reformats were created for review. Contrast used:70 mL of Isovue 300 with IV Contrast, none. Oral contrast used: none. FINDINGS: LUNGS/ PLEURA: Redemonstration of right lower lobe 4.0 x 2.7 cm mass which is slightly larger in size , previously measuring 2.7 x 2.4 cm on 10/10/2021. No evidence of focal consolidation, pneumothorax or pleural effusion. No new pulmonary nodules. AIRWAY: Patent and unremarkable. HEART:Heart is mildly enlarged for size. There is mild coronary artery atherosclerosis. MEDIASTINUM: No gross evidence of adenopathy. There is a moderate hiatal hernia present. VASCULATURE: No aortic aneurysm. MUSCULOSKELETAL: No acute osseous abnormalities, multilevel disc degeneration changes are seen throug hout the spine. SOFT TISSUES/LYMPH NODES: Surgical clips are seen within the right breast LOWER NECK: No significant findings. UPPER ABDOMEN: Postsurgical changes to the gastric lumen is present consistent with gastric sleeve. IMPRESSION: 1. Interval mild increase in size right lower lobe pulmonary mass, tissue sampling is recommended. N o evidence of mediastinal lymphadenopathy. 2. Moderate hiatal hernia with debris layering within the esophagus correlate for esophageal dysmoti lity/reflux.
== END | disposition home or self-care (01) ==
LOC: RADCTMAIN 10:31
PROVIDERS: ATTEND Internal Medicine Hematology & Oncology
DX: R91.8 Other nonspecific abnormal finding of lung field (principal); K44.9 Diaphragmatic hernia without obstruction or gangrene
CPT/HCPCS: 82565; 84520; 71260; 36415; Q9967

== ENCOUNTER → 2022-05-27 | Outpatient (CLI) | payer MEDICARE ==
--- NOTE | 2022-06-02 08:11 | MM ---
Reason for Exam: Screening (asymptomatic). Last mammogram was performed 1 year(s) and 2 month(s) ago. Patient History: Menarche at age 15. Patient has no children. Postmenopausal. Breast cancer, right, age 68. 08/26/2018, Lumpectomy on the Right side. 08/26/2018, Lumpectomy on the Right side. 08/26/2018, Malignant Core Biopsy on the right side. Prior Study Comparison: 07/11/2001 Right Special View Mammogram, [facility]. 07/08/2020 Bilateral Diagnostic Mammogram, [facility]. 03/24/2021 Bilateral Diagnostic Mammogram, [facility]. Tissue Density: The breast tissue is heterogeneously dense. This may lower the sensitivity of mammography. Findings: Analyzed By CAD. There is no suspicious group of microcalcifications or new suspicious mass in either breast. Stable postoperative distortion upper outer right breast. Overall Assessment: Benign, BI-RAD 2 Management: Screening Mammogram of both breasts in 1 year. A clinical breast exam by your physician is recommended on an annual basis and results should be correlated with mammographic findings. Electronically signed and approved by: Dean Marcus M.D. Radiologis
== END | disposition home or self-care (01) ==
LOC: RADMAMWWP 14:33
PROVIDERS: ATTEND Internal Medicine Hematology & Oncology
DX: Z12.31 Encounter for screening mammogram for malignant neoplasm of breast (principal); Z78.0 Asymptomatic menopausal state; Z85.3 Personal history of malignant neoplasm of breast
CPT/HCPCS: 77063; 77067

== ENCOUNTER 2022-06-11 11:07 | Day surgery (SDC) | payer MEDICARE ==
[2022-06-10 10:23] VITALS: BMI 33.4
[~2022-06-11 11:07] MED LIST changes: +ALBUTEROL NEB (CONC) 2.5 MG/0.5 ML INHALATION ONE; -LIDOCAINE 1% 20 ML VIAL (10MG/ML) FOR IV START INTRADERMA PRN; +LIDOCAINE 2% (PF) 20 MG/ML 5 ML VIAL INHALATION ONE; +LIDOCAINE VISCOUS 300 MG/15 ML CUP MUCOUS MEM ONE; +SODIUM CHLORIDE 0.9% 1,000 ML IV SCH
[2022-06-11] MEDS ORDERED: LACTATED RINGERS 1,000 ML IV ONE ×3 (11:45→14:25)
[2022-06-11 11:47] VITALS: RESP 16
[2022-06-11] MEDS ORDERED: PROPOFOL 10 MG/ML 20 ML VIAL IV ONE (12:51)
[2022-06-11] MEDS ORDERED: fentaNYL (PF) 50 MCG/ML 2 ML AMP ONE (12:51)
[2022-06-11] MEDS ORDERED: MIDAZOLAM 2 MG/2 ML VIAL ONE (12:51)
[2022-06-11] MEDS ORDERED: SUCCINYLCHOLINE CHLORIDE 200 MG/10 ML VIAL IV ONE (12:51)
[2022-06-11] MEDS ORDERED: LIDOCAINE 2% INJ 20 MG/ML (2 ML VIAL) ONE (12:51)
--- NOTE | 2022-06-11 14:07 | P.PCN ---
Date of Procedure: 06/11/22 Preoperative Diagnosis: Right lower lobe mass Postoperative Diagnosis: right lower lobe mass, anterior segment Procedure(s) Performed: navigation bronchoscopy Flexible bronchoscopy and airway inspection Transbronchial biopsy, brushing, transbronchial needle aspirate and the bronchial lavage of the anterior segment of the right lower lobe, using navigation guidance Anesthesia: ERNESTO Surgeon: Gaby Martin Estimated Blood Loss (ml): 0 Pathology: other Condition: stable Disposition: same day Operative Findings: A preoperative CAT scan of the chest was done to map the lung mass using the [employer] navigation system. The appropriate V pads were applied to the patient's chest, and the patient completed the CAT scan and images were uploaded to the computer with the appropriate mapping was done and following that all of this information was transferred into a USB and later on to the navigation tower. This procedure was done under general anesthesia. the indication for the procedure today slowly enlarging right lower lobe mass. Please refer to the most recent CAT scan of the chest and they previous PET scan has been done to evaluate his right lower lobe mass. The biopsies being done upon the request of oncology due to concern of occult malignancy. A consent was obtained. The procedure with them the endoscopy suite under general anesthesia.the patient was intubated and placed on a mechanical ventilator in the usual fashion. The intubation process of the lumbar general anesthesia. Adequate oxygenation and ventilation was achieved prior to initiating the procedure. Following that, an adapter was attached to the little chicken tube and the flexible bronchoscope was advanced through the orotracheal tube and airways infection was normal. A complete airway examination included examination of the distal trachea, mid trachea, bilateral mainstem bronchi, but upper lobe bronchus, right middle lobe bronchus, right lower lobe bronchus, bronchus intermedius and the various 10 segments . Examination of the right lower lobe anterior segment revealed a irr egular, shiny, round like lesion RIGHT anterior segment of the right lower lobe causing obstruction of the segments or at least partial obstruction where the forceps cannot be advanced distal to that lesion. Shiny appearance of the lesion obviously raises the concern for underlying carcinoid tumor. Otherwise, examination of the right side was essentially within normal limits. Later on, the bronchoscope was normal to the left and examination of the left side included the left upper lobe bronchus, left lower lobe bronchus and the various 10 segments on the left. All of this and was operated on within normal limits. On the blockage and was lesions or abnormalities identified. following that, using navigation guidance, the flexible bronchoscope was directed to the anterior segment of the right lower lobe. Under navigation guidance and direct observation, aspart biopsies of the right lower lobe mass was gone. Following that, I performed just monitor needle aspirate of the lesion and transbronchial brushings. At the completion of the procedure, the bronchial lavage of the anterior segment of the right lower lobe with them. A total of a disease of fluid was infused and 10 mL was aspirated without any major difficulties. The procedure was uncomplicated. . There was no evidence of any significant bleeding. Total amount of bleeding was less than 5 mL and the patient underwent the procedure without any major complications intraoperatively.. As such, the bronchoscope was removed and the patient was left anesthesia to be extubated. Post extubation, the patient is going to be transferred to recovery. We'll continue to follow.
[2022-06-11 14:28] VITALS: TEMP 96.9
--- NOTE | 2022-06-11 14:30 | CT ---
EXAMINATION TYPE: CT Chest flor Ybarra Protocol DATE OF EXAM: 06/11/2022 COMPARISON: 04/16/2022 HISTORY: lung mass CT DLP: 580 mGycm Automated exposure control for dose reduction was used. FINDINGS: LUNGS/ PLEURA: Redemonstration of right lower lobe 4.0 x 2.7 cm mass which is slightly larger in size , previously measuring 2.7 x 2.4 cm on 10/10/2021. No evidence of focal consolidation, pneumothorax or pleural effusion. No new pulmonary nodules. AIRWAY: Patent and unremarkable. HEART:Heart is mildly enlarged for size. There is mild coronary artery atherosclerosis. MEDIASTINUM: No gross evidence of adenopathy. There is a moderate hiatal hernia present. VASCULATURE: No aortic an eurysm. MUSCULOSKELETAL: No acute osseous abnormalities, multilevel disc degeneration changes are seen throug hout the spine. SOFT TISSUES/LYMPH NODES: Surgical clips are seen within the right breast LOWER NECK: No significant findings. UPPER ABDOMEN: Postsurgical changes to the gastric lumen is present consistent with gastric sleeve. C orrelate for hiatal hernia IMPRESSION: 1. Interval mild increase in size right lower lobe pulmonary mass, tissue sampling is recommended. No evidence of mediastinal lymphadenopathy. 2. Moderate hiatal hernia with debris layering within the esophagus correlate for esophageal dysmotil ity/reflux.
[2022-06-11 15:14] VITALS: BP 152/84; PULSE 71
== END 2022-06-11 15:25 | disposition home or self-care (01) ==
LOC: ORWHC2ENDO 11:07
PROVIDERS: ATTEND Internal Medicine Critical Care Medicine
DX: R91.1 Solitary pulmonary nodule (principal); K44.9 Diaphragmatic hernia without obstruction or gangrene; E78.5 Hyperlipidemia, unspecified
CPT/HCPCS: 88104; 88108; 88305; 88342; 88341; 71250; 31629; 31625; 31623; 31624; 31627; 31628; J2250; J0330; J3010; J2704; J2001

== ENCOUNTER → 2022-07-15 | Outpatient (CLI) | payer MEDICARE ==
[2022-07-15 15:57] LABS: African American GFR (CKD) >90 (>60 ml/min/1.73 sqM); Blood Urea Nitrogen 11 mg/dL (7-17); Non-African American GFR(CKD) 90 (>60 ml/min/1.73 sqM)
--- NOTE | 2022-07-16 07:44 | CT ---
EXAMINATION TYPE: CT abdomen pelvis w con CT DLP: 1176.20 mGycm, Automated exposure control for dose reduction was used. DATE OF EXAM: 07/15/2022 5:04 PM COMPARISON: PET/CT 07/04/2021 CLINICAL INDICATION:Female, 72 years old with history of C50.411; OBS FOR METS. HX OF LUNG AND BREAST CA TECHNIQUE: Axial CT of the abdomen and pelvis. Sagittal and coronal reformats were created on a [employer] workstation. Contrast used:70 mL of Isovue 300 with IV Contrast, Oral contrast used: with Oral Contrast FINDINGS: LOWER CHEST: Partially visualized surgical changes somewhat spiculated mass in the right breast. This area measures up to 2.6 x 1.3 cm not significantly changed from prior PET/CT 07/04/2021. Area of con solidation in the right lower lobe has increased in size compared to prior PET/CT currently 3.6 x 3.0 cm, previously 3.3 x 2.2 cm. There are some atelectasis there is wedge-shaped that extends towards t he periphery. ABDOMEN LIVER: Unremarkable GALLBLADDER AND BILE DUCTS: Unremarkable. PANCREAS: Unremarkable. SPLEEN: Unremarkable. ADRENAL GLANDS: Unremarkable. KIDNEYS AND URETERS: No evidence of hydronephrosis or renal calculus. The ureters are unremarkable. PELVIS BLADDER: Circumferential thickening of the bladder wall. REPRODUCTIVE: The uterus is atrophic. ABDOMEN & PELVIS STOMACH AND BOWEL: No evidence of bowel obstruction. Appendix is normal. Postsurgical changes to the gastric lumen. Moderate hiatal hernia is present. PERITONEUM: No evidence of pneumoperitoneum or free fluid. VASCULATURE: No evidence of aortic aneurysm. MUSCULOSKELETAL: No acute osseous abnormalities LYMPH NODES: No gross evidence for lymphadenopathy. SOFT TISSUE/ABDOMINAL WALL: Fat-containing umbilical hernia. IMPRESSION: 1. Enlarging right lower lobe pulmonary mass with suspected postobstructive atelectasis. Further work up is recommended. 2. Stable appearing partially visualized right breast postsurgical changes. 3. Moderate hiatal hernia. 4. Circumferential bladder wall thickening correlate with urinalysis for cystitis.
== END | disposition home or self-care (01) ==
LOC: RADCTMAIN 14:17
PROVIDERS: ATTEND Internal Medicine Hematology & Oncology
DX: C50.411 Malignant neoplasm of upper-outer quadrant of right female breast (principal); K44.9 Diaphragmatic hernia without obstruction or gangrene; N32.89 Other specified disorders of bladder
CPT/HCPCS: 82565; 84520; 74177; 36415; Q9967

== ENCOUNTER → 2022-08-21 | Outpatient (CLI) | payer MEDICARE ==
[2022-08-21 16:45] LABS: INR 0.9 (<1.2); Partial Thromboplastin Time 22.2 sec (22.0-30.0); Prothrombin Time 9.8 sec (9.0-12.0)
[2022-08-21 23:06] LABS: Basophils # (A) 0.04 X 10*3/uL (0.00-0.10); Basophils % (A) 0.9 %; Eosinophils # (A) 0.16 X 10*3/uL (0.04-0.35); Eosinophils % (A) 3.5 %; HCT 42.6 % (37.2-46.3); Immature Grans, Automated 0.2 %; Lymphocytes # (A) 1.66 X 10*3/uL (0.90-5.00); Lymphocytes % (A) 36.4 %; MCH 30.5 pg (27.0-32.0); MCHC 32.9 g/dL (32.0-37.0); MCV 92.8 fL (80.0-97.0); Mean Platelet Volume 9.9 fL (9.5-12.2); Monocytes # (A) 0.29 X 10*3/uL (0.20-1.00); Monocytes % (A) 6.4 %; NRBC Per 100 WBC 0 /100 WBCS (0.0-0.0); Neutrophils % (A) 52.6 %; Platelet Count 236 X 10*3/uL (140-440); RBC 4.59 X 10*6/uL (4.10-5.20); RDW 12.8 % (11.5-14.5); WBC 4.56 X 10*3/uL (4.50-10.00)
[2022-08-22 02:30] LABS: African American GFR (CKD) 92.7 (60.0-200.0); Anion Gap 12.8 mmol/L (10.00-18.00); Blood Urea Nitrogen 13.1 mg/dL (9.0-27.0); Carbon Dioxide 24.4 mmol/L (20.0-27.5); Potassium 4.6 mmol/L (3.5-5.5)
== END | disposition home or self-care (01) ==
LOC: LABPAT 15:10
PROVIDERS: ATTEND Thoracic Surgery (Cardiothoracic Vascular Surgery)
DX: Z01.812 Encounter for preprocedural laboratory examination (principal)
CPT/HCPCS: 80051; 82565; 82947; 84520; 85025; 85610; 85730; 93005

== ENCOUNTER 2022-08-25 10:43 | Inpatient (IN) | payer MEDICARE ==
[2022-08-21 13:22] VITALS: BMI 31.4
[~2022-08-25 10:43] MED LIST changes: -ALBUTEROL NEB (CONC) 2.5 MG/0.5 ML INHALATION ONE; +DEXAMETHASONE SOD PHOSPHATE 4 MG/ML 1 ML VIAL IV ONE; -LACTATED RINGERS 1,000 ML IV SCH; +LIDOCAINE 1% (10MG/ML) FOR IV START INTRADERMA PRN; -LIDOCAINE 2% (PF) 20 MG/ML 5 ML VIAL INHALATION ONE; -LIDOCAINE VISCOUS 300 MG/15 ML CUP MUCOUS MEM ONE; +ONDANSETRON 4 MG/2 ML VIAL IVP ONE; -SODIUM CHLORIDE 0.9% 1,000 ML IV SCH
[2022-08-25] MEDS: LACTATED RINGERS 1,000 ML IV SCH ×2 (12:04→18:09)
[2022-08-25] MEDS ORDERED: ONDANSETRON 4 MG/2 ML VIAL ONE (12:07)
[2022-08-25] MEDS ORDERED: NEOSTIGMINE 1 MG/ML 10 ML VIAL ONE (12:35)
[2022-08-25] MEDS ORDERED: GLYCOPYRROLATE 0.2 MG/ML 2 ML VIAL ONE (12:35)
[2022-08-25] MEDS ORDERED: ROPIVACAINE 5 MG/ML 30 ML VIAL ONE (12:35)
[2022-08-25] MEDS ORDERED: SUCCINYLCHOLINE CHLORIDE 200 MG/10 ML VIAL IV ONE (12:35)
[2022-08-25] MEDS ORDERED: MIDAZOLAM 2 MG/2 ML VIAL ONE (12:35)
[2022-08-25] MEDS ORDERED: LIDOCAINE 2% INJ 20 MG/ML (2 ML VIAL) ONE (12:35)
[2022-08-25] MEDS ORDERED: PROPOFOL 10 MG/ML 20 ML VIAL IV ONE (12:35)
[2022-08-25] MEDS ORDERED: ROCURONIUM 10 MG/ML (5 ML VIAL) IV ONE (12:35)
[2022-08-25] MEDS ORDERED: fentaNYL (PF) 50 MCG/ML 2 ML AMP ONE (12:35)
[2022-08-25] MEDS ORDERED: BUPIVACAINE (PF) 0.5% 30 ML VIAL SQ ONE (14:55)
[2022-08-25] MEDS: HYDROmorphone 0.5 MG/0.5 ML SYRINGE IVP PRN ×2 (15:34→16:06)
--- NOTE | 2022-08-25 15:34 | P.OP ---
Date of Procedure: 08/25/22 Preoperative Diagnosis: Primary pulmonary sarcoma, right lower lobe Postoperative Diagnosis: Same Procedure(s) Performed: Robotic-assisted thoracoscopic right lower lobectomy with mediastinal lymph node dissection Implants: None Anesthesia: ERNESTO Surgeon: Angel Witt Collar Cutter #1: Remington Pro Estimated Blood Loss (ml): 25 IV fluids (ml): 1,000 Urine output (ml): 200 Pathology: other (Right lower lobe, lymph nodes stations R4, R8, R10, R11, R12, level 7) Condition: stable Disposition: PACU Indications for Procedure: 72-year-old female slowly enlarging right lower lobe mass over several years. PET/CT was negative for uptake in the mass. Both PET and CT were negative for lymphadenopathy. Needle biopsy was performed on the mass and was positive for malignant fibrosarcoma. Surgical resection was recommended. Operative Findings: Near complete fissures. Mild anthracotic adenopathy. Large mass in the right lower lobe without involvement of the visceral pleura or hilum. Description of Procedure: The patient was brought to the operating room, placed supine on the operating table, anesthetized and intubated with a double-lumen endotracheal tube. Tube was positioned with fiberoptic bronchoscopy and secured. Patient was turned in the left lateral decubitus position and appropriately positioned for right sided robotic lobectomy. Right chest was sterilely prepped and draped. Single lung ventilation was initiated and initial incision was made in the ninth interspace in the anterior axillary line. An 8 mm port was placed into the pleural space and confirmed with good presents in the pleural space by thoracoscopy. CO2 insufflation was begun. 212 mm ports were placed anterior and posterior to the initial port in the same interspace. A working port was placed anteriorly at the level of the diaphragm and a second 8 mm port was placed in the seventh interspace posteriorly. The robot was docked. We began with exploration of the chest. The greater fissure was nearly complete and the pulmonary artery was visualized at the base of the greater fissure. We were able to dissected out the superior segmental branch of the pulmonary artery leading to the superior segment of the right lung lower lobe. This was divided with the robotic vascular stapler. Dissection was now carried onto the inferior pulmonary ligament which was taken down. Dissection was carried posterior to the inferior pulmonary vein and the R8 and level VII lymph nodes were resected and sent for permanent section. Dissection was carried up onto the bronchus intermedius and the interval between the upper lobe bronchus and bronchus intermedius was dissected out. Several R 11 lymph nodes were resected from this area. Diss ection was now carried onto the inferior pulmonary vein. Was encircled and ligated and divided with a robotic vascular stapler. A separate branch of the inferior pulmonary vein draining the superior segment of the right lower lobe directly into the pericardium was identified and ligated and divided with a robotic stapler. Dissection was now carried onto the bronchus. The interval between the lower lobe and middle lobe bronchus off the bronchus intermedius was identified. Dissecting here we were able to encircle the lower lobe bronchus without impacting on the airway to the middle lobe. Lower lobe bronchus was ligated and divided with the robotic green stapler. Dissection was now carried onto the pulmonary artery. Main branch of the pulmonary artery to the basal segments of the right lower lobe was encircled and ligated and divided with a robotic stapler sparing the middle lobe artery. We now completed the fissure between the middle and lower lobe with 2 firings of the robotic blue 30 mm stapler. Lobectomy specimen was now freed and placed into an Endo Catch bag. It was dissection was carried up onto the azygos vein. Dissection in the region of the azygos vein and the main pulmonary artery revealed no evidence of R 10 lymph nodes. Further dissection beneath the azygos vein into the right paratracheal region yielded some R4 lymph nodes. Following this the specimen w as removed by slightly enlarging the working port incision. Was removed from the Endo Catch bag and examined on the back table. Are 12 lymph nodes were dissected out and sent separately. The chest was filled with warm water and the lung was inflated under thoracoscopic visualization. There was no evidence of air leak. 28-Dutch chest tube was placed through the anteriormost incision and positioned posterior apically. It was connected to a Pleur-evac. The fluid was suctioned free from the pleural space and the lung completely inflated under thoracoscopic visualization. Incisions were closed with layers of Vicryl suture. Rib blocks were performed with half percent Marcaine at the level of the incisions. Skin glue and dry sterile dressings were applied and the patient was turned supine and extubated and transferred to recovery in stable condition.
--- NOTE | 2022-08-25 16:04 | XR ---
EXAMINATION TYPE: XR chest 1V portable DATE OF EXAM: 08/25/2022 3:56 PM COMPARISON: CT chest 06/11/2022, chest radiograph 06/05/2021. TECHNIQUE: XR chest 1V portable Frontal view of the chest. CLINICAL INDICATION:Female, 72 years old with history of post lobectomy; FINDINGS: Patient is rotated which limits evaluation. Lungs/Pleura: Postsurgical changes from right lobectomy. Medial and lower right lung atelectasis. No sizable pneumothorax. Pulmonary vascularity: Unremarkable. Heart/mediastinum: Mediastinal shift to the right due to volume loss from lobectomy. Musculoskeletal: No acute osseous pathology. Other findings: Surgical clips in the right breast. Lines/Tubes: Right thoracotomy tube demonstrated with tip towards the right apex. IMPRESSION: Postsurgical changes from right lobectomy with thoracotomy tube in place. No sizable pneumothorax.
[2022-08-25] MEDS ORDERED: KETOROLAC 15 MG/ML 1 ML VIAL IVP ONE (16:13)
[2022-08-25] MEDS ORDERED: IPRATROPIUM-ALBUTEROL 3 ML NEB IH PRN (16:18)
[2022-08-25] MEDS ORDERED: ACETAMINOPHEN TAB 325 MG TAB PO PRN (16:18)
[2022-08-25] MEDS ORDERED: DEXTROSE 5%-0.45% NACL 1,000 ML IV SCH (16:30)
[2022-08-25] MEDS: IPRATROPIUM-ALBUTEROL 3 ML NEB IH SCH ×2 (17:00→21:17)
[2022-08-25] MEDS: KETOROLAC 15 MG/ML 1 ML VIAL IVP SCH ×2 (18:10→23:07)
[2022-08-25] MEDS: HEPARIN SODIUM,PORCINE/PF 5,000 UNIT/0.5 ML SYRINGE SQ SCH (18:13)
[2022-08-25] MEDS: traMADol 50 MG TAB PO SCH ×2 (20:20→23:06)
[2022-08-25] MEDS: PRAVASTATIN SODIUM 20 MG TAB PO SCH (20:25)
[2022-08-26] MEDS: HEPARIN SODIUM,PORCINE/PF 5,000 UNIT/0.5 ML SYRINGE SQ SCH ×4 (03:28→23:05)
[2022-08-26] MEDS: traMADol 50 MG TAB PO SCH ×4 (05:18→23:08)
[2022-08-26] MEDS: PANTOPRAZOLE 40 MG TABLET PO SCH (05:18)
[2022-08-26] MEDS: KETOROLAC 15 MG/ML 1 ML VIAL IVP SCH ×4 (05:18→23:08)
--- NOTE | 2022-08-26 07:54 | P.PN ---
Subjective Progress Note Date: 08/26/22 Principal diagnosis: Primary pulmonary sarcoma right lower lobe. Previous medical history of right breast cancer with chemo/radiation and lumpectomy in 2018, hypothyroid, hyperlipidemia, GERD, sleeve gastrectomy, never smoker, and family history of cancer. POD #1 Robotic assisted thoracoscopic right lower lobectomy with mediastinal lymph node dissection The patient was seen and examined sitting up in bed this morning on the cardiac stepdown unit. She denies pain or shortness of breath currently. Right chest tube remains to water seal, very minimal intermittent air leak present with forceful coughing only. Remains on room air with oxygen saturation in the mid 90s. Only able to achieve 500 mL on incentive spirometry. No other new concerns. Objective - Vital Signs Vital signs: Vital Signs Temp 98.4 F 08/26/22 03:59 Pulse 71 08/26/22 03:59 Resp 16 08/26/22 03:59 BP 101/64 08/26/22 03:59 Pulse Ox 95 08/26/22 03:59 FiO2 Intake & Output 08/25/22 08/26/22 08/26/22 18:59 06:59 18:59 Intake Total 2000 Output Total 460 555 Balance 1540 -555 Weight 75.5 kg Intake: IV 2000 Output: Chest Tube Drainage 80 Chest Tube Right Lateral 80 Chest Urine 440 475 Estimated Blood Loss 20 Other: Voiding Method Indwelling Catheter Indwelling Catheter - Exam CONSTITUTIONAL: Appears comfortable, cooperative, no acute distress RESPIRATORY: Lungs sounds diminished bilaterally. Respirations even, nonlabored. Currently on room air with oxygen saturation 95%. Able to achieve 500 mL on incentive spirometry. Strong non productive cough. CARDIOVASCULAR: S1, S2 present. Regular rate and rhythm, sinus rhythm on telemetry. Palpable peripheral pulses bilaterally. No edema present. No calf pain or tenderness noted. SCDs present. GASTROINTESTINAL: Abdomen soft, nontender, nondistended. Hypoactive bowel sounds present 4 quadrants. Tolerating diet. GENITOURINARY: Jj present draining clear yellow urine, 475 mL overnight INTEGUMENTARY: Skin is warm and dry with evidence of good perfusion. Thoracic incisions well approximated and covered with dry intact dressing. NEUROLOGIC: Cranial nerves II through XII intact MUSKULOSKELETAL: Able to move all extremities, strength equal bilaterally PSYCHIATRIC: Alert and oriented to person place and time, appropriate affect, intact judgment and insight INVASIVE LINES AND TUBES: Right pleural chest tubes present to waterseal, tiny intermittent air leak present with forceful coughing only, 30 mL serosanguineous drainage overnight, 80 mL since surgery - Allied health notes Allied health notes reviewed: nursing - Imaging and Cardiology Chest x-ray: image reviewed Assessment and Plan Assessment: 1. Primary pulmonary sarcoma right lower lobe, status post navigational bronchoscopy and transbronchial needle biopsy by Dr. Martin 06/11/22 with pathology positive for leiomyosarcoma, status post robotic assisted thoracoscopic right lower lobectomy with mediastinal lymph node dissection, surgical pathology pending 2. History of right breast cancer with chemo/radiation and lumpectomy in 2018 3. Hypothyroid 4. Hyperlipidemia 5. GERD 6. Sleeve gastrectomy 7. Never smoker 8. Family history of cancer Plan: 1. Continue right pleural chest tube to water seal for another 24 hours, monitor for air leak resolution 2. Encourage incentive spirometry use 10 times every hour, bronchodilators per pulmonology 3. Increase activity, ambulate as tolerated 4. Will monitor daily labs and CXR 5. GI/DVT prophylaxis 6. Pain control with current medication regimen 7. Continue home meds 8. Discontinue jj, heplock IV 9. Follow pathology 10. More recommendations to follow
[2022-08-26 07:55] LABS: Basophils % (A) 0 %; Eosinophils % (A) 0 %; HCT 39.7 % (34.0-46.0); HGB 13.3 gm/dL (11.4-16.0); Lymphocytes # (A) 0.8 k/uL (1.0-4.8); Lymphocytes % (A) 8 %; MCH 30.7 pg (25.0-35.0); MCHC 33.5 g/dL (31.0-37.0); MCV 91.7 fL (80.0-100.0); Mean Platelet Volume 7.5; Monocytes # (A) 0.4 k/uL (0-1.0); Monocytes % (A) 4 %; Neutrophils # (A) 8.6 k/uL (1.3-7.7); Neutrophils % (A) 86 %; Platelet Count 242 k/uL (150-450); RBC 4.33 m/uL (3.80-5.40); RDW 12.7 % (11.5-15.5); WBC 9.9 k/uL (3.8-10.6)
[2022-08-26 08:11] LABS: African American GFR (CKD) >90 (>60 ml/min/1.73 sqM); Anion Gap 7 mmol/L; Blood Urea Nitrogen 14 mg/dL (7-17); Calcium 8.6 mg/dL (8.4-10.2); Carbon Dioxide 25 mmol/L (22-30); Chloride 105 mmol/L (98-107); Glucose 136 mg/dL (74-99); Non-African American GFR(CKD) >90 (>60 ml/min/1.73 sqM); Potassium 4.2 mmol/L (3.5-5.1); Sodium 137 mmol/L (137-145)
--- NOTE | 2022-08-26 08:30 | XR ---
EXAMINATION TYPE: XR chest 1V DATE OF EXAM: 08/26/2022 COMPARISON: 08/25/2022 INDICATION: Post lobectomy TECHNIQUE: Single frontal view of the chest is obtained. FINDINGS: The heart size is normal. The pulmonary vasculature is normal. There is diminished aeration to the right lung. Right-sided chest tube is present. There is shift of the superior mediastinum and trachea towards the right. Pneumothorax is not evident. Some platelike atelectasis may be at the left base, increasing from comparison. IMPRESSION: 1. Mild platelike atelectasis increased at the left base. 2. Post lobectomy right lung field.
[2022-08-26] MEDS: IPRATROPIUM-ALBUTEROL 3 ML NEB IH SCH ×4 (08:31→19:07)
[2022-08-26] MEDS: ONDANSETRON 4 MG/2 ML VIAL IVP PRN ×2 (08:33→15:42)
[2022-08-26] MEDS: LETROZOLE 2.5 MG TAB PO SCH (11:19)
[2022-08-26] MEDS: TROSPIUM CHLORIDE 20 MG TABLET PO SCH ×2 (11:20→20:57)
--- NOTE | 2022-08-26 13:48 | P.ANPRN ---
Procedure Note - Anesthesia - Nerve Block Performed Right Erector Spinae Single Time Out Performed: Yes Date of Procedure: 08/25/22 Procedure Start Time: 11:52 Procedure Stop Time: 12:08 Location of Patient: PreOp Indication: Acute Post-Operative Pain, Requested by Surgeon Sedation Type: Sedate with meaningful contact maintained Preparation: Sterile Prep, Sterile Dressing Position: Sitting Needle Types: Pajunk Needle Gauge: 21 Ultrasound used to visualize needle placement: Yes Ultrasound used to observe medication spread: Yes Injectate: 0.5% Ropivacaine (see comment for volume) (15 cc) Blood Aspirated: No Pain Paresthesia on Injection Noted: No Resistance on Injection: Normal Image Stored and Saved: Yes Events: Uneventful and Well Tolerated
--- NOTE | 2022-08-26 14:43 | P.CNPUL ---
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 Witt performed robotic-assisted thoracoscopic right lower lobectomy and mediastinal lymph node dissection. Postoperatively patient was admitted to the medical floor, and we were asked to see her on consultation. Apparently this patient was recently diagnosed by Dr. Martin, without diagnosis was made on 06/12/22, patient clearly had leiomyosarcoma involving the right lower lobe. Postoperative course has been relatively uneventful. Patient continues to have a right-sided chest tube in place, she is on room air, not in any distress. Her past medical history is significant mostly for breast cancer, hypothyroidism, dyslipidemia, GERD without esophagitis, and recent bronchoscopy and transbronchial biopsy. Family history is mostly significant for lung cancer/mother dementia/father NE/brother intracranial aneurysm/cyst in Surgical history is significant for lumpectomy laparoscopic sleeve gastrectomy and tonsillectomy recent bronchoscopy and transbronchial biopsy, and now right lower lobectomy. Review of Systems Constitutional: Negative HEENT: Negative Head: Negative Pulmonary: Negative GI: Negative Genitourinary: Negative Muscular skeletal negative skin: Negativ Hematologic: Negative Psychiatric: Negative Endocrine: Negative Past Medical History Past Medical History: Cancer, GERD/Reflux, Hyperlipidemia, Thyroid Disorder Additional Past Medical History / Comment(s): See Dr Witt's H&P. Hx right breast cancer in 2018 with lumpectomy. chemo and radiation. CURRENT MASS IN RIGHT LUNG. CURRENT MASS ON THYROID. "Cholestrol levels improved with medication". History of Any Multi-Drug Resistant Organisms: None Reported Past Surgical History: Bariatric Surgery, Breast Surgery, Tonsillectomy Additional Past Surgical History / Comment(s): Right breast lumpectomy, sleeve gastrectomy 2013, EGD, bronchoscopy. Past Anesthesia/Blood Transfusion Reactions: No Reported Reaction Past Psychological History: No Psychological Hx Reported Smoking Status: Never smoker Past Alcohol Use History: None Reported Past Drug Use History: None Reported - Past Family History Mother Family Medical History: Cancer Medications and Allergies Home Medications Medication Instructions Recorded Confirmed Type Levothyroxine Sodium [Synthroid] 150 mcg PO SUTUTHSA 08/24/18 08/21/22 History Pravastatin Sodium [Pravachol] 20 mg PO HS 08/24/18 08/21/22 History Famotidine [Pepcid] 20 mg PO BID #120 tablet 06/23/19 08/21/22 Rx Omeprazole [PriLOSEC] 40 mg PO AC-BRKFST #90 cap 06/18/20 08/21/22 Rx Letrozole 2.5 mg PO DAILY 01/01/21 08/21/22 History Solifenacin Succinate [Vesicare] 10 mg PO DAILY 08/25/22 08/25/22 History Allergies Allergy/AdvReac Type Severity Reaction Status Date / Time No Known Allergies Allergy Verified 08/21/22 13:04 Physical Exam Vitals: Vital Signs Temp Pulse Pulse Resp BP BP BP 08/26/22 11:42 75 08/26/22 11:39 98.4 F 72 20 08/26/22 11:29 75 08/26/22 08:45 75 08/26/22 08:31 74 08/26/22 08:00 98.0 F 65 18 08/26/22 03:59 98.4 F 71 16 08/26/22 02:00 16 08/25/22 23:48 78 16 08/25/22 21:28 82 08/25/22 21:17 80 08/25/22 20:00 97.6 F 78 16 08/25/22 17:40 97.7 F 82 17 08/25/22 17:00 83 16 08/25/22 16:45 80 16 08/25/22 16:31 83 16 151/68 08/25/22 16:16 80 16 153/76 08/25/22 16:02 78 16 159/78 08/25/22 15:46 77 14 165/84 08/25/22 15:30 81 14 181/92 164/82 08/25/22 15:18 97 F L 81 14 142/79 BP Pulse Ox 08/26/22 11:42 08/26/22 11:39 113/64 97 08/26/22 11:29 08/26/22 08:45 08/26/22 08:31 08/26/22 08:00 117/68 95 08/26/22 03:59 101/64 95 08/26/22 02:00 08/25/22 23:48 125/78 94 L 08/25/22 21:28 08/25/22 21:17 08/25/22 20:00 114/67 100 08/25/22 17:40 127/75 95 08/25/22 17:00 125/67 96 08/25/22 16:45 143/70 94 L 08/25/22 16:31 149/73 97 08/25/22 16:16 160/67 98 08/25/22 16:02 167/70 98 08/25/22 15:46 160/76 98 08/25/22 15:30 98 08/25/22 15:18 98 Intake and Output 08/25/22 08/26/22 08/26/22 22:59 06:59 14:59 Intake Total 250 Output Total 350 505 200 Balance -100 -505 -200 Intake: IV 250 Output: Chest Tube Drainage 50 30 Chest Tube Right Lateral 50 30 Chest Urine 300 475 200 Uretheral (Byers) 200 Other: Voiding Method Indwelling Catheter Indwelling Catheter Indwelling Catheter Physical Exam: Revealed 72-year-old female in no distress on room air. Head: Atraumatic, normocephalic. HEENT:[Neck is supple.] [No neck masses.] [No thyromegaly.] [No JVD.] Chest: [Clear throughout, no crackles, no rhonchi, no wheezes.] Right-sided chest tube is noted, no air leak noted. Cardiac Exam: [Normal S1 and S2, no S3 gallop, no murmur.] Abdomen: [Soft, nontender, no megaly, no rebound, no guarding, normal bowel sounds.] Extremities: [No clubbing, no edema, no cyanosis.] Neurological Exam: [No focal neurologic deficit.] Alert oriented 3. Psychiatric: Normal mood affect and normal status examination. Skin: No rash Results - Laboratory Findings CBC and BMP: 08/26/22 07:32 08/26/22 07:32 Abnormal lab findings: Abnormal Labs 08/26/22 08/26/22 07:32 07:32 Neutrophils # 8.6 H Lymphocytes # 0.8 L Glucose 136 H - Diagnostic Findings Chest x-ray: image reviewed (Postoperative changes otherwise unremarkable.) Assessment and Plan Assessment: Impression:POD #1 Robotic assisted thoracoscopic right lower lobectomy with mediastinal lymph node dissection Primary leiomyosarcoma right lower lobe, recently diagnosed via transbronchial biopsy/bronchoscopy History of breast cancer, previous lumpectomy followed by chemo/radiation in 2018 Dyslipidemia History of sleeve gastrectomy Lifelong nonsmoker Hypothyroidism Recommendation: Continue chest tube to waterseal for the next 24 hours, no air leak noted today. Continue incentive spirometry Continue pain control Continue GI and DVT prophylaxis Outpatient follow-up with Dr. Martin post discharge Time with Patient: Greater than 30
[2022-08-26] MEDS: PRAVASTATIN SODIUM 20 MG TAB PO SCH (20:15)
[2022-08-27] MEDS: KETOROLAC 15 MG/ML 1 ML VIAL IVP SCH ×2 (06:03→12:15)
[2022-08-27] MEDS: traMADol 50 MG TAB PO SCH (06:04)
[2022-08-27] MEDS: PANTOPRAZOLE 40 MG TABLET PO SCH (06:06)
[2022-08-27] MEDS ORDERED: LEVOTHYROXINE 75 MCG TAB PO SCH (06:30)
--- NOTE | 2022-08-27 07:57 | P.PN ---
Subjective Progress Note Date: 08/27/22 Principal diagnosis: Primary pulmonary sarcoma right lower lobe. Previous medical history of right breast cancer with chemo/radiation and lumpectomy in 2018, hypothyroid, hyperlip idemia, GERD, sleeve gastrectomy, never smoker, and family history of cancer. POD #2 Robotic assisted thoracoscopic right lower lobectomy with mediastinal lymph node dissection The patient was seen and examined sitting up in the recliner this morning after just getting back from x-ray on the cardiac stepdown unit. She denies pain or shortness of breath currently. Right chest tube remains to water seal, no air leak present this morning. Remains on room air with oxygen saturation in the mid 90s. Able to achieve 750 mL on incentive spirometry. She did have an episode this morning of confusion after waking up, this has since resolved and she is completely oriented 3 and cooperative. She does recognize that she was confused. No other new concerns. Objective - Vital Signs Vital signs: Vital Signs Temp 97.6 F 08/27/22 04:00 Pulse 71 08/27/22 04:00 Resp 18 08/27/22 04:00 BP 127/72 08/27/22 04:00 Pulse Ox 94 L 08/27/22 04:00 FiO2 Intake & Output 08/26/22 08/27/22 08/27/22 18:59 06:59 18:59 Intake Total 240 Output Total 320 640 Balance -80 -640 Intake: Oral 240 Output: Chest Tube Drainage 120 140 Chest Tube Right Lateral 120 140 Chest Urine 200 500 Uretheral (Byers) 200 Other: Voiding Method Indwelling Catheter Toilet # Voids 1 - Exam CONSTITUTIONAL: Appears comfortable, cooperative, no acute distress RESPIRATORY: Lungs sounds diminished bilaterally. Respirations even, nonlabored. Currently on room air with oxygen saturation 94%. Able to achieve 750 mL on incentive spirometry. Strong non productive cough. CARDIOVASCULAR: S1, S2 present. Regular rate and rhythm, sinus rhythm on telemetry. Palpable peripheral pulses bilaterally. No edema present. No calf pain or tenderness noted. SCDs present. GASTROINTESTINAL: Abdomen soft, nontender, nondistended. Active bowel sounds present 4 quadrants. Tolerating diet. Positive flatus GENITOURINARY: Continues to void clear, yellow urine INTEGUMENTARY: Skin is warm and dry with evidence of good perfusion. Thoracic incisions well approximated and covered with dry intact dressing. NEUROLOGIC: Cranial nerves II through XII intact MUSKULOSKELETAL: Able to move all extremities, strength equal bilaterally PSYCHIATRIC: Alert and oriented to person place and time, appropriate affect, intact judgment and insight INVASIVE LINES AND TUBES: Right pleural chest tubes present to waterseal, no air leak present this morning, 90 mL serosanguineous drainage overnight, 400 mL total in atrium - Allied health notes Allied health notes reviewed: nursing - Labs CBC & Chem 7: 08/26/22 07:32 08/26/22 07:32 Labs: Abnormal Lab Results - Last 24 Hours (Table) 08/26/22 08/26/22 Range/Units 07:32 07:32 Neutrophils # 8.6 H (1.3-7.7) k/uL Lymphocytes # 0.8 L (1.0-4.8) k/uL Glucose 136 H (74-99) mg/dL - Imaging and Cardiology Chest x-ray: image reviewed Assessment and Plan Assessment: 1. Primary pulmonary sarcoma right lower lobe, status post navigational [facility] hoscopy and transbronchial needle biopsy by Dr. Martin 06/11/22 with pathology positive for leiomyosarcoma, status post robotic assisted thoracoscopic right lower lobectomy with mediastinal lymph node dissection, surgical pathology pending 2. History of right breast cancer with chemo/radiation and lumpectomy in 2018 3. Hypothyroid 4. Hyperlipidemia 5. GERD 6. Sleeve gastrectomy 7. Never smoker 8. Family history of cancer Plan: 1. Will discontinue right pleural chest tube today 2. Encourage incentive spirometry use 10 times every hour, bronchodilators per pulmonology 3. Increase activity, ambulate as tolerated 4. Will monitor daily labs and CXR 5. GI/DVT prophylaxis 6. Pain control with current medication regimen 7. Continue home meds 8. Follow pathology 9. Reorient as necessary 10. More recommendations to follow
--- NOTE | 2022-08-27 08:12 | XR ---
EXAMINATION TYPE: XR chest 2V DATE OF EXAM: 08/27/2022 COMPARISON: 08/26/2022 HISTORY: 72-year-old female postlobectomy TECHNIQUE: PA and lateral views FINDINGS: Right-sided chest tube in place. Surgical clips in the right axilla. There is volume loss of the righ t hemithorax compatible with patient's history of lobectomy. Trace right apical pneumothorax measures 7 mm versus 1.3 cm previously in retrospect. Prominent bands of atelectasis left mid and lower lung remain. IMPRESSION: 1. Trace 7 mm right apical pneumothorax is now seen. Right-sided chest tube in place. 2. Ongoing platelike atelectasis left mid and lower lung.
[2022-08-27] MEDS: IPRATROPIUM-ALBUTEROL 3 ML NEB IH SCH ×2 (08:24→11:23)
[2022-08-27 08:54] LABS: HCT 42.9 % (34.0-46.0); HGB 14.6 gm/dL (11.4-16.0); MCH 31.6 pg (25.0-35.0); MCHC 34.1 g/dL (31.0-37.0); MCV 92.6 fL (80.0-100.0); Mean Platelet Volume 7.7; Platelet Count 217 k/uL (150-450); RBC 4.64 m/uL (3.80-5.40); RDW 12.8 % (11.5-15.5); WBC 8.1 k/uL (3.8-10.6)
[2022-08-27 09:09] LABS: African American GFR (CKD) >90 (>60 ml/min/1.73 sqM); Anion Gap 8 mmol/L; Blood Urea Nitrogen 13 mg/dL (7-17); Calcium 9.1 mg/dL (8.4-10.2); Carbon Dioxide 27 mmol/L (22-30); Chloride 103 mmol/L (98-107); Glucose 90 mg/dL (74-99); Non-African American GFR(CKD) >90 (>60 ml/min/1.73 sqM); Potassium 4.1 mmol/L (3.5-5.1); Sodium 138 mmol/L (137-145)
[2022-08-27] MEDS: HEPARIN SODIUM,PORCINE/PF 5,000 UNIT/0.5 ML SYRINGE SQ SCH (09:48)
[2022-08-27] MEDS: LETROZOLE 2.5 MG TAB PO SCH (09:49)
[2022-08-27] MEDS: TROSPIUM CHLORIDE 20 MG TABLET PO SCH (09:49)
--- NOTE | 2022-08-27 11:55 | P.PN ---
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 Witt performed robotic-assisted thoracoscopic right lower lobectomy and mediastinal lymph node dissection. Postoperatively patient was admitted to the medical floor, and we were asked to see her on consultation. Apparently this patient was recently diagnosed by Dr. Martin, without diagnosis was made on 06/12/22, patient clearly had leiomyosarcoma involving the right lower lobe. Postoperative course has been relatively uneventful. Patient continues to have a right-sided chest tube in place, she is on room air, not in any distress. Her past medical history is significant mostly for breast cancer, hypothyroidism, dyslipidemia, GERD without esophagitis, and recent bronchoscopy and transbronchial biopsy. Family history is mostly significant for lung cancer/mother dementia/father IA/brother intracranial aneurysm/cyst in Surgical history is significant for lumpectomy laparoscopic sleeve gastrectomy and tonsillectomy recent bronchoscopy and transbronchial biopsy, and now right lower lobectomy. Reevaluated today on 08/27/22, patient is doing well, she is on room air, right- sided chest tube has been removed earlier this morning. Patient does not seem to be in any distress.blood pressures normal heart rate is normal and the patient is saturating 96% on room air.labs this morning including CBC and basic metabolic profile are all normal, chest x-ray post chest tube removal is pending. Objective - Vital Signs Vital signs: Vital Signs Temp 98.1 F 08/27/22 08:00 Pulse 85 08/27/22 08:35 Resp 20 08/27/22 08:00 BP 131/81 08/27/22 08:00 Pulse Ox 96 08/27/22 08:00 FiO2 Intake & Output 08/26/22 08/27/22 08/27/22 18:59 06:59 18:59 Intake Total 240 118 Output Total 320 640 550 Balance -80 -640 -432 Intake: Oral 240 118 Output: Chest Tube Drainage 120 140 Chest Tube Right Lateral 120 140 Chest Urine 200 500 550 Uretheral (Byers) 200 Other: Voiding Method Indwelling Catheter Toilet Toilet # Voids 1 1 - Exam Physical Exam: Revealed 72-year-old female in no distress on room air. Head: Atraumatic, normocephalic. HEENT:[Neck is supple.] [No neck masses.] [No thyromegaly.] [No JVD.] Chest: [Clear throughout, no crackles, no rhonchi, no wheezes.] Cardiac Exam: [Normal S1 and S2, no S3 gallop, no murmur.] Abdomen: [Soft, nontender, no megaly, no rebound, no guarding, normal bowel sounds.] Extremities: [No clubbing, no edema, no cyanosis.] Neurological Exam: [No focal neurologic deficit.] Alert oriented 3. Psychiatric: Normal mood affect and normal status examination. Skin: No rash - Labs CBC & Chem 7: 08/27/22 07:41 08/27/22 07:41 Assessment and Plan Assessment: Impression:POD #2 Robotic assisted thoracoscopic right lower lobectomy with mediastinal lymph node dissection Primary leiomyosarcoma right lower lobe, recently diagnosed via transbronchial biopsy/bronchoscopy History of breast cancer, previous lumpectomy followed by chemo/radiation in 2018 Dyslipidemia History of sleeve gastrectomy Lifelong nonsmoker Hypothyroidism Recommendation: chest tube has been removed uneventfully, chest x-ray is pending Continue incentive spirometry Continue pain control Continue GI and DVT prophylaxis Outpatient follow-up with Dr. Martin post discharge Time with Patient: Less than 30
[2022-08-27 12:14] VITALS: BP 128/71; PULSE 91; RESP 18; TEMP 97.9
--- NOTE | 2022-08-27 13:00 | XR ---
EXAMINATION TYPE: XR chest 2V DATE OF EXAM: 08/27/2022 COMPARISON: Earlier today HISTORY: 72 year-old female post chest tube removal TECHNIQUE: PA and lateral views FINDINGS: A trace 4 mm right apical pneumothorax remains, decreased from 7 mm after chest tube removal. Marked hypoventilatory changes. Platelike atelectasis at the left base. Decreased volume in the right hemith orax compatible with history of lobectomy. Surgical clips right axilla. IMPRESSION: A trace 4 mm right apical pneumothorax remains after chest tube removal. Compared to 7 mm earlier rolando zarate. Postsurgical change of right-sided lobectomy.
--- NOTE | 2022-08-27 15:38 | P.DS ---
Providers Date of admission: 08/25/22 10:43 Expected date of discharge: 08/27/22 Attending physician: Angel Witt Consults: 08/26/22 07:17 Consult Physician Routine Consulting Provider: Fabio Edge Reason/Comments: post lobectomy Do you want consulting provider notified?: Already Contacted Primary care physician: Anabella Kruse [facility] Course: FINAL DIAGNOSIS: 1. Primary pulmonary sarcoma right lower lobe status post previous navigational bronchoscopy and transbronchial needle biopsy by Dr. Martin 06/11/2022 with pathology positive for leiomyosarcoma, 2. History of right breast cancer with chemo/radiation and lumpectomy in 2018 3. Hypothyroid 4. Hyperlipidemia 5. GERD 6. Sleeve gastrectomy 7. Never smoker 8. Family history of cancer PRINCIPAL PROCEDURE: 1. Robotic assisted thoracoscopic right lower lobectomy with mediastinal lymph node dissection HISTORY OF PRESENT ILLNESS: This is a 9-year-old female patient who follows out patient with Dr Martin for pulmonology and Dr. Anabella Kruse for primary care. She had a history of breast cancer with previous high-grade ductal carcinoma with a right partial mastectomy and subsequent chemotherapy and radiation to the breast. She has been in remission since 2018. In follow-up she was found have a right lower lobe mass. This has been slowly increasing in size, starting from 3.3 cm on the initial CAT scan in 2020 and now growing to 4 cm on CAT scan from 06/11/2022. There was no evidence of adenopathy on the CT. She did undergo a PET scan about a year ago which showed no hypermetabolism in the tumor. She subsequently underwent needle biopsy which was read as showing leiomyosarcoma which was confirmed at the [facility]. The patient was referred to Dr. Witt from cardiothoracic surgery. She was recommended to undergo surgical resection. The usual perioperative course was discussed in detail with the patient and her family, all risks and benefits were explained, all questions were answered, and consent was obtained to proceed with surgery. The patient was scheduled for surgery at the earliest possible date. HOSPITAL COURSE: The patient was brought to the hospital on 08/25/2022, taken to the preoperative area, prepared in the usual fashion, and subsequently taken to the operating room where Dr. Witt performed a robotic-assisted thoracoscopic right lower lobectomy with mediastinal lymph node dissection. Upon completion of surgery the patient was extubated and taken to the recovery room for further hemodynamic monitoring. She was eventually admitted to 3 S. cardiac stepdown unit for further monitoring. Her chest tube contained no air leak and was discontinued on postop day #2. Her oxygen was titrated down, she was tolerating oral diet, her pain was controlled, and she was ready to be discharged to home on postoperative day #2]. She received written and verbal instruction regarding her medications, activity restrictions, signs and symptoms requiring physician notification, and follow-up appointments. Patient Condition at Discharge: Stable Plan - Discharge Summary Discharge Rx Participant: Yes New Discharge Prescriptions: No Action Pravastatin Sodium [Pravachol] 20 mg PO HS Levothyroxine Sodium [Synthroid] 150 mcg PO SUTUTHSA Famotidine [Pepcid] 20 mg PO BID #120 tablet Omeprazole [PriLOSEC] 40 mg PO AC-BRKFST #90 cap Letrozole 2.5 mg PO DAILY Solifenacin Succinate [Vesicare] 10 mg PO DAILY Discharge Medication List Levothyroxine Sodium [Synthroid] 150 mcg PO SUTUTHSA 08/24/18 [History] Pravastatin Sodium [Pravachol] 20 mg PO HS 08/24/18 [History] Famotidine [Pepcid] 20 mg PO BID #120 tablet 06/23/19 [Rx] Omeprazole [PriLOSEC] 40 mg PO AC-BRKFST #90 cap 06/18/20 [Rx] Letrozole 2.5 mg PO DAILY 01/01/21 [History] Solifenacin Succinate [Vesicare] 10 mg PO DAILY 08/25/22 [History] Follow up Appointment(s)/Referral(s): Anabella Kruse MD [Primary Care Provider] - As Needed Angel Witt MD [STAFF PHYSICIAN] - 09/03/22 10:15 am Adiel Howe MD [STAFF PHYSICIAN] - As Needed Gaby Martin MD [STAFF PHYSICIAN] - 09/22/22 10:00 am Activity/Diet/Wound Care/Special Instructions: DISCHARGE INSTRUCTIONS: 1. No driving for 2 weeks, or until physician gives their ok. 2. No lifting, pushing, or pulling more than 10 pounds for 2 weeks. The physician will advise of any restriction changes. 3. Continue pain control per as needed orders. Alternate acetaminophen (Tylenol) and ibuprofen (Motrin/Advil) for pain. 4. Continue with incentive spirometry and splinting until otherwise directed by the physician. 5. Leave chest tube dressing for 48 hours. After that, remove all dressings and shower daily. 6. Routine incision care. No powders, lotions, ointments on incisions. 7. Please call surgeon/MARKETING COORDINATOR for temp greater than 101 F or purulent drainage from incisions. Discharge Disposition: HOME SELF-CARE
== END 2022-08-27 17:00 | disposition home or self-care (01) | DRG 165 ==
LOC: 2ORMAIN 10:43 → 3SCARD 16:12
PROVIDERS: ADMIT Thoracic Surgery (Cardiothoracic Vascular Surgery); ATTEND Thoracic Surgery (Cardiothoracic Vascular Surgery)
PROC: 07B74ZX Excision of Thorax Lymphatic, Percutaneous Endoscopic Approach, Diagnostic (ICD-10-PCS; 2022-08-25)
PROC: 8E0W4CZ Robotic Assisted Procedure of Trunk Region, Percutaneous Endoscopic Approach (ICD-10-PCS; 2022-08-25)
PROC: 0BTF4ZZ Resection of Right Lower Lung Lobe, Percutaneous Endoscopic Approach (ICD-10-PCS; principal; 2022-08-25 12:30)
DX: C34.31 Malignant neoplasm of lower lobe, right bronchus or lung (principal); E03.9 Hypothyroidism, unspecified; R59.0 Localized enlarged lymph nodes; E78.5 Hyperlipidemia, unspecified; E07.9 Disorder of thyroid, unspecified; K21.9 Gastro-esophageal reflux disease without esophagitis; Z85.3 Personal history of malignant neoplasm of breast; Z82.49 Family history of ischemic heart disease and other diseases of the circulatory system; Z80.1 Family history of malignant neoplasm of trachea, bronchus and lung; Z98.84 Bariatric surgery status; Z92.3 Personal history of irradiation; Z92.21 Personal history of antineoplastic chemotherapy; Z79.899 Other long term (current) drug therapy; Z79.811 Long term (current) use of aromatase inhibitors; Z90.11 Acquired absence of right breast and nipple
CPT/HCPCS: 64461; 71045; 71046; 80048; 85025; 85027; 86850; 86900; 86901; 94640

== ENCOUNTER → 2022-12-03 | Outpatient (CLI) | payer MEDICARE ==
--- NOTE | 2022-12-03 15:29 | US ---
EXAMINATION TYPE: US thyroid st tissue head/neck DATE OF EXAM: 12/03/2022 COMPARISON: US thyroid 07/27 CLINICAL HISTORY: E04.1 Thyroid nodule. Known enlarged thyroid GLAND SIZE: Right Lobe: 6.3 x 3.0 x 2.3 cm Overall Parenchyma: heterogenous, attenuating Left Lobe: 4.6 x 2.8 x 2.3 cm Overall Parenchyma: Heterogenous Isthmus Thickness: 0.4 cm, lobular NODULES RIGHT: # of nodules measured on right: 0 LEFT: # of nodules measured on left: 0 ISTHMUS: # of nodules measured in the isthmus: 0 Bilateral neck scanned, no evidence of lymphadenopathy. Enlarged bilateral lobes, right lobe has very heterogeneous and attenuating tissue. No distinct nodu les seen. Increased tissue vascularity. IMPRESSION: Enlarged heterogenous vascular thyroid gland, correlate with serum markers for thyroiditis.
== END | disposition home or self-care (01) ==
LOC: RADUSWWP 14:57
PROVIDERS: ATTEND Internal Medicine Hematology & Oncology
DX: E04.1 Nontoxic single thyroid nodule (principal); C50.411 Malignant neoplasm of upper-outer quadrant of right female breast; E78.5 Hyperlipidemia, unspecified; E03.9 Hypothyroidism, unspecified; K21.9 Gastro-esophageal reflux disease without esophagitis
CPT/HCPCS: 76536

== ENCOUNTER → 2022-12-15 | Outpatient (CLI) | payer MEDICARE ==
--- NOTE | 2022-12-15 12:31 | XR ---
EXAMINATION TYPE: XR knee complete LT DATE OF EXAM: 12/15/2022 12:18 PM INDICATION: Patient age:Female; 72 years old; Reason for study: M25.562; COMPARISON: None. TECHNIQUE: The Left knee(s) was examined in Frontal, lateral and oblique projections. FINDINGS: No evidence of any acute osseous pathology, soft tissue swelling, or joint effusion is no sukhdev. Tricompartmental osteophyte formation involving the femoral condyles, tibial plateau and patella. Mi ld joint space narrowing. IMPRESSION: 1. No acute osseous pathology. 2. Mild tricompartmental osteoarthritic changes.
== END | disposition home or self-care (01) ==
LOC: RADXRMAIN 11:50
PROVIDERS: ATTEND Family Medicine
DX: M17.12 Unilateral primary osteoarthritis, left knee (principal)

== ENCOUNTER → 2023-03-25 | Outpatient (CLI) | payer MEDICARE ==
--- NOTE | 2023-03-25 10:52 | BD ---
EXAMINATION TYPE: Axial Bone Density DATE OF EXAM: 03/25/2023 CLINICAL HISTORY: 72 years old Female. ICD-10 CODE: C50.411 CARCINOMA OR UPPER OUTTER QUAD OF RT BILL AST Height: 60" Weight: 150.5lbs FRAX RISK QUESTIONS: Alcohol (3 or more units per day): No Family History (Parent hip fracture): No Glucocorticoids (More than 3mos): No (Ex: prednisone, prednisolone, methylprednisolone, dexamethasone, and hydrocortisone). History of Fracture in Adulthood: Yes Secondary Osteoporosis: 1. Type 1 Diabetes: No 2. Hyperthyroidism: No 3. Menopause before 45: Yes, 38 4. Malnutrition: No 5. Chronic liver disease: No Rheumatoid Arthritis: No Current Tobacco Use: No RISK FACTORS HISTORY OF: Hip Fracture (Right/Left): No Spine Fracture: No History of Wrist Fracture: No Surgery to Spine/Hip(right/left)/Wrist (right/left): No Family History of Osteoporosis: No Active: Yes Diet low in dairy products/other sources of calcium: No Postmenopausal woman: No Lost more than 2 inches in height since high school: Yes Frequent falls: "Once in a while" Poor Health: No Hyperparathyroidism: No Adrenal Insufficiency: No MEDICATIONS: Prednisone or other steroids: No Thyroid Medications: Which medication: Levothyroxine How Long: Since age 18 Osteoporosis Medications: No Additional Medications: Levothyroxine, arimidex, reflux, cholesterol, vit D, calcium Additional History: Hx of breast and lung cancer, chemo and radiation for breast cancer EXAM MEASUREMENTS: Bone mineral densitometry was performed using the [employer] System. Bone mineral density as measured about the Lumbar spine is: ----- L1-L4(G/cm2): 1.079 T Score Values are as follows: ----- L1: -0.9 ----- L2: -0.8 ----- L3: -0.9 ----- L4: -0.9 ----- L1-L4: -0.8 Z Score Values are as follows: ----- L1: 0.7 ----- L2: 0.8 ----- L3: 0.7 ----- L4: 0.6 ----- L1-L4: 0.7 Bone mineral density has: decreased -2.6% since study of: 03/24/2021 Bone mineral density about the R hip (g/cm2): 0.913 Bone mineral density about the L hip (g/cm2): 0.970 T Score values are as follows: -----R Neck: -1.5 -----L Neck: -1.2 -----R Total: -0.8 -----L Total: -0.3 Z Score values are as follows: -----R Neck: 0.2 -----L Neck: 0.5 -----R Total: 0.7 -----L Total: 1.1 Bone mineral density has: remained the same at 0.0% since study of: 03/24/2021 FRAX%s: The graph provided illustrates a 9.9% chance for a major osteoporotic fx and a 1.5% chance fo r the hips probability for fx in 10 years time. IMPRESSION: Osteopenia (T Score between -2.5 and -1). There is slightly increased risk of fracture and the patient may be considered for treatment. Re-Screen 2-5 years. NOTE: T-SCORE=SD OF THE YOUNG ADULT MEAN.
== END | disposition home or self-care (01) ==
LOC: RADBDWWP 09:39
PROVIDERS: ATTEND Internal Medicine Hematology & Oncology
DX: C50.411 Malignant neoplasm of upper-outer quadrant of right female breast (principal); M85.89 Other specified disorders of bone density and structure, multiple sites; E78.5 Hyperlipidemia, unspecified; E03.9 Hypothyroidism, unspecified; K21.9 Gastro-esophageal reflux disease without esophagitis; E04.1 Nontoxic single thyroid nodule; Z78.0 Asymptomatic menopausal state; Z85.3 Personal history of malignant neoplasm of breast; Z85.118 Personal history of other malignant neoplasm of bronchus and lung
CPT/HCPCS: 77080

== ENCOUNTER → 2023-06-17 | Outpatient (CLI) | payer MEDICARE ==
--- NOTE | 2023-06-17 10:17 | USB ---
Reason for Exam: Additional evaluation requested from abnormal screening. Patient History: Menarche at age 15. Patient has no children. Postmenopausal. Breast cancer, right, age 68. 08/26/2018, Lumpectomy on the Right side. 08/26/2018, Lumpectomy on the Right side. 08/26/2018, Malignant Core Biopsy on the right side. Technique: Method: Targeted. Prior Study Comparison: 03/24/2021 Bilateral Diagnostic Mammogram, [facility]. 05/27/2022 Bilateral MG 3D screening mammo w/cad, [facility]. 05/31/2023 Bilateral MG 3D screening mammo w/cad, [facility]. Findings: The upper inner quadrant of the right breast, the axilla of the right breast and the retroareolar of the right breast were scanned. Targeted ultrasound upper quadrant 12:00 to 3:00 including scanning of the subareolar region and axilla. At the 1:00 position, 18 cm from the nipple, there is and apparent round cyst measuring 7 x 7 x 5 mm. Some adjacent vascularity is noted. Through-transmission is also demonstrated. No other solid or cystic lesion. This likely corresponds to the mammographic finding. However, given the patient's history and new finding on mammogram, possibly six-month follow-up is recommended. Overall Assessment: Probably benign, BI-RAD 3 Management: Diagnostic Mammogram of the right breast in 6 months. A clinical breast exam by your physician is recommended on an annual basis and results should be correlated with mammographic findings. This exam should not preclude additional follow-up of suspicious palpable abnormalities. Results were given to the patient verbally at the time of exam. Electronically signed and approved by: Earline Jean M.D. Radiologist
== END | disposition home or self-care (01) ==
LOC: RADUSWWP 09:41
PROVIDERS: ATTEND Internal Medicine Hematology & Oncology
DX: R92.331 Mammographic heterogeneous density, right breast (principal); Z78.0 Asymptomatic menopausal state; Z85.3 Personal history of malignant neoplasm of breast

== ENCOUNTER → 2023-10-06 | Outpatient (CLI) | payer MEDICARE ==
--- NOTE | 2023-10-06 13:13 | XR ---
EXAMINATION TYPE: XR thoracic spine 2V DATE OF EXAM: 10/06/2023 CLINICAL HISTORY: pain TECHNIQUE: Frontal, lateral, and swimmer's view of thoracic spine are obtained. COMPARISON: None. FINDINGS: Thoracic spine show satisfactory alignment without evidence of acute fracture or dislocatio n. Vertebral body heights are preserved. Moderate multilevel degenerative disc space narrowing and s pondylosis. Visualized ribs are unremarkable. IMPRESSION: No acute fracture or dislocation is seen in the thoracic spine. ICD 10 NO FRACTURE, INIT IAL EVALUATION
== END | disposition home or self-care (01) ==
LOC: RADXRMAIN 12:44
PROVIDERS: ATTEND Family Medicine
DX: M54.6 Pain in thoracic spine (principal)
CPT/HCPCS: 72070

== ENCOUNTER → 2023-11-02 | Outpatient (CLI) | payer MEDICARE ==
[2023-11-02 10:17] VITALS: BP 135/86; PULSE 81; RESP 16; TEMP 98.7
--- NOTE | 2023-11-02 11:04 | P.HPOB ---
History of Present Illness H&P Date: 11/02/23 Chief Complaint: The patient is here for her routine gynecologic exam. This is a 73-year-old G0 with an LMP of 2003. The patient is here to establish with this office. It has been about 5 years since her last pelvic exam. The patient is without gynecologic complaints and denies any postmenopausal bleeding. She is status post right breast cancer in 2018. She is status post lumpectomy with radiation and chemotherapy. Her last mammogram was on 05/31/2023 and this did require a right breast workup. This was felt to probably be benign and a six-month diagnostic mammogram of the right breast was recommended. Review of Systems The patient's weight has been stable over the last year. She denies respiratory, cardiac, or G.I. problems. Past Medical History Past Medical History: Cancer, GERD/Reflux, Hyperlipidemia, Thyroid Disorder Additional Past Medical History / Comment(s): Hx right breast cancer in 2018 with lumpectomy. chemo and radiation. Right lung cancer. Hypothyroid. PAST ANESTHESIOLOGISTS' ASSISTANT HISTORY: She has no history of STDs. History of Any Multi-Drug Resistant Organisms: None Reported Past Surgical History: Bariatric Surgery, Breast Surgery, Tonsillectomy Additional Past Surgical History / Comment(s): Right breast lumpectomy, sleeve gastrectomy 2013, EGD, bronchoscopy. Partial right lung removal for cancer. Past Anesthesia/Blood Transfusion Reactions: No Reported Reaction Past Psychological History: No Psychological Hx Reported Smoking Status: Never smoker Past Alcohol Use History: None Reported Past Drug Use History: None Reported Additional History: She has been since 1975 and is sexually active. She is retired. - Past Family History Mother Family Medical History: Cancer Additional Family Medical History / Comment(s): . Uncertain of the type of cancer she had. Father Family Medical History: Dementia Additional Family Medical History / Comment(s): . Brother(s) Family Medical History: Myocardial Infarction ([place]) Additional Family Medical History / Comment(s): . Sister(s) Family Medical History: Cancer Additional Family Medical History / Comment(s): . Uncertain of the type of cancer. Medications and Allergies Home Medications Medication Instructions Recorded Confirmed Type Levothyroxine Sodium [Synthroid] 150 mcg PO SUTUTHSA 08/24/18 11/02/23 History Pravastatin Sodium [Pravachol] 20 mg PO HS 08/24/18 11/02/23 History Omeprazole [PriLOSEC] 40 mg PO -BRKFST #90 cap 06/18/20 11/02/23 Rx Letrozole 2.5 mg PO DAILY 01/01/21 11/02/23 History Solifenacin Succinate [Vesicare] 10 mg PO DAILY 08/25/22 11/02/23 History Acetaminophen Tab [Tylenol] 650 mg PO Q4HR PRN tab 08/27/22 11/02/23 Rx Allergies Allergy/AdvReac Type Severity Reaction Status Date / Time No Known Allergies Allergy Verified 11/02/23 09:56 Exam Vital Signs Temp Pulse Resp BP Pulse Ox 11/02/23 10:00 98.7 F 81 16 135/86 98 Intake and Output 11/01/23 11/02/23 11/02/23 22:59 06:59 14:59 Other: Weight 70.307 kg Height 5 feet 1 inch, weight 155 pounds, BMI 29.3. This is a well-developed well-nourished white female who is alert and oriented times 3 in no acute distress. HEENT: Within normal limits. NECK: Supple without mass or thyromegaly. CHEST AND LUNGS: Clear to auscultation. HEART: Regular rate and rhythm. BREASTS: Are without mass or discharge. There is a scar from her previous right lumpectomy at the 8 o'clock position of the right breast. AXILLARY EXAM: Negative for adenopathy. BACK: Negative for CVA tenderness. ABDOMEN: Soft, nontender, without palpable masses. PELVIC EXAM: Normal external genitalia with mild atrophy. Cervix and vagina appear normal with mild to moderate atrophy. The cervix is somewhat stenotic secondary to atrophy. There is no unusual discharge. There is no evidence of prolapse. The uterus is midposition, nongravid size and nontender. There are no palpable adnexal masses or tenderness. RECTAL EXAM: Rectovaginal exam is negative for mass or tenderness and is negative for occult blood. EXTREMITIES: Nontender. IMPRESSION: 1. 73-year-old menopausal female with normal gynecologic exam. 2. History of right breast cancer status post lumpectomy, radiation and chemotherapy. The patient continues to take letrozole. 3. History of osteopenia PLAN: 1. Pap smear cotest was performed. If this is negative, we will repeat the Pap smear cotest in approximately 5 years and if they are both negative. 2. Self breast awareness was discussed with the patient. We have also discussed symptoms associated with inflammatory breast cancer. 3. Screening mammogram was done on 05/31/2023 and this did require a right breast workup. The right breast workup on 06/17/2023 was benign and six-month diagnostic mammogram was recommended. The order slip was given to the patient for this and she will do this in approximately December of this year. 4. Osteoporosis prevention was discussed. I have stressed the importance of adequate calcium, vitamin D and regular exercise. Recommended amounts of calcium and vitamin D were also discussed. Bone density testing will be done through her oncologist, as she has done in the past. 5. She is not sure when her last colonoscopy was done and she will discuss this with her PCP to determine when her next one is due. 6. The patient was advised to return in 1-2 years for her well woman examination.
== END ==
LOC: WWCWWP 09:40
PROVIDERS: ATTEND Obstetrics & Gynecology
DX: M85.80 Other specified disorders of bone density and structure, unspecified site (principal); E03.9 Hypothyroidism, unspecified; E78.5 Hyperlipidemia, unspecified; K21.9 Gastro-esophageal reflux disease without esophagitis; Z85.118 Personal history of other malignant neoplasm of bronchus and lung; Z85.3 Personal history of malignant neoplasm of breast; Z78.0 Asymptomatic menopausal state; Z79.890 Hormone replacement therapy

== ENCOUNTER → 2023-12-22 | Outpatient (CLI) | payer MEDICARE ==
[2023-12-22 11:43] LABS: African American GFR (CKD) 89 (>60 ml/min/1.73 sqM); Blood Urea Nitrogen 18 mg/dL (7-17); Non-African American GFR(CKD) 77 (>60 ml/min/1.73 sqM)
--- NOTE | 2023-12-22 12:34 | CT ---
EXAMINATION TYPE: CT chest w con DATE OF EXAM: 12/22/2023 COMPARISON: Radiograph 08/27/[address] chest 04/16/2022 HISTORY: 73-year-old female C50.411, f/u lung and breast ca TECHNIQUE: Contiguous axial scanning of the chest after the administration of 100ml mL of Isovue 300. Coronal/sagittal reconstructions performed. CT DLP: 325.5mGycm. Automatic exposure control utilized for a dose reduction. FINDINGS: Heart normal size without pericardial effusion. Borderline ectatic ascending aorta 3.5 cm. Conventional arch vessel branching anatomy. Postsurgical and posttreatment changes right breast with surgical clips right axilla. While there is no thoracic lymphadenopathy, there are new scattered subcutaneous soft tissue nodules along the anter ior upper to mid chest and posterior left shoulder measuring up to 1.1 cm. Left: Axial image 4, 19, and 25. Right: Axial image 12 and 15. Anterior thoracoabdominal midline measuring 8 mm, axial image 49. There are a few new bilateral pulmonary nodules,, 3 on the right measuring up to 9 mm and 4 on the le ft measuring up to 8 mm. There appears to be previous right middle lobectomy with volume loss in the right base and elevation of the right hemidiaphragm. No consolidation or pleural effusion. There is a small hiatal hernia redemonstrated, status post sleeve gastrectomy. Visualized upper abdomen shows a new anterior left paramedian mesenteric soft tissue nodule measuring 8 mm and a 7 mm deposit in the left posterior pararenal space. Bones: New lytic lesion in the left posterior T9 vertebral body. IMPRESSION: 1. Compared to 2021, there is evidence of disease recurrence/progression with scattered small subcuta neous deposits measuring up to 1.1 cm as described above, a few scattered pulmonary nodules measuring up to 9 mm, a single 8 mm mesenteric deposit, a 7 mm left pararenal deposit, and new lytic lesion le ft T9 vertebral body. 2. Status post right middle lobectomy. 3. Redemonstrated small hiatal hernia status post sleeve gastrectomy. 4. Postsurgical and posttreatment change right breast and right axilla is unchanged.
== END | disposition home or self-care (01) ==
LOC: RADCTMAIN 11:05
PROVIDERS: ATTEND Internal Medicine Hematology & Oncology
DX: C50.411 Malignant neoplasm of upper-outer quadrant of right female breast (principal); E78.5 Hyperlipidemia, unspecified; E03.9 Hypothyroidism, unspecified; K44.9 Diaphragmatic hernia without obstruction or gangrene; R91.8 Other nonspecific abnormal finding of lung field
CPT/HCPCS: 82565; 84520; 71260; Q9967

== ENCOUNTER → 2024-01-24 | Outpatient (CLI) | payer MEDICARE ==
--- NOTE | 2024-02-01 08:03 | PE ---
EXAMINATION TYPE: PET CT fusion skull to thigh DATE OF EXAM: 01/24/2024 COMPARISON: CT chest 12/22/2023 Prior PET/CT: 07/04/2021 HISTORY: Breast cancer TECHNIQUE: Following the intravenous administration of 13.59 mCi of F-18 FDG, whole body images are performed from the skull base to the midthigh. Images are reviewed on the computer in the coronal, a xial, and sagittal planes. Reconstructed rotating images are created on independent workstation and reviewed on the computer. A localization and attenuation correction CT is performed in conjunction with the PET scan. DLP: 427.37 mGycm SCAN: Subsequent Blood glucose: 89 mg/dL Average Mediastinum SUV: 1.35 Average Liver SUV: 1.99 FINDINGS: NECK: There is diffuse uptake within the enlarged thyroid. This is greater in the right thyroid lobe and has elevated uptake of 6.77 THORAX: No abnormal intrathoracic uptake. No suspicious uptake within the right posterior lung nodule, image 76, SUV 0.64. No suspicious uptake within the nodule, posterior left upper lung field image 82 SUV 0.47. No suspicious uptake within th e left lung base posterior lung nodule, image 102, SVC 0.75 ABDOMEN: No abnormal uptake PELVIS: There is a focal uptake anterior to the psoas muscle, image 177, SUV 7.45. This is felt to mo re likely be related to the ureter. However, this is somewhat focal. OSSEOUS STRUCTURES: There may be some focal uptake within a posterior lateral lower rib, image 123, S UV 3.16. There is focal uptake within the right sacrum with an SUV of 5.34. This corresponds to the lytic lesi on on the localization CT. Within the left sacrum some posterior lateral mild uptake is a sacroiliac joint with SUV of 2.35. There is some mild uptake within the posterior pubic ramus, image 224 with an SUV of 3. Small metasta tic lesion should be considered. Small amount of increased uptake may be in the superior left acetabulum with SUV of 2.92. There is a small metastatic lesion within the left posterior lateral L4 vertebral body with an SUV of 2.18. A larger lytic lesion is within the lumbar spine with peripheral enhancement at L2. Soft tissues: There is some focal uptake within the triceps region right upper extremity, image 38. T his has an SUV of 2.72. This is somewhat more focal than expected for muscular activity which is with in the differential. LOCALIZATION CT: Lung nodules are identified on bone windows. Suspicious uptake is not identified how ever. COMPARISON: Thyroid uptake is similar. Lung nodules are new. Osseous lesions are new IMPRESSION: 1. New lytic lesions most notably within the sacral a lot. Additional uptake within vertebral bodies in the posterior right lower rib discussed above. 2. New lung nodules with low uptake atypical for metastatic lesions. 3. Some focal uptake within the right triceps region could be a soft tissue metastasis
== END | disposition home or self-care (01) ==
LOC: RADPETMAIN 13:58
PROVIDERS: ATTEND Internal Medicine Hematology & Oncology
DX: C50.411 Malignant neoplasm of upper-outer quadrant of right female breast (principal); R91.8 Other nonspecific abnormal finding of lung field
CPT/HCPCS: 78815; A9552

== ENCOUNTER → 2024-04-27 | Outpatient (CLI) | payer MEDICARE ==
--- NOTE | 2024-05-22 14:34 | CONS ---
CONSULTATION REASON FOR CONSULTATION: 74-year-old lady has been evaluated in Sleep Center for possible obstructive sleep apnea-hypopnea syndrome. HISTORY OF PRESENT ILLNESS: Sleep-awake evaluation: The patient's usual sleep schedule is from around 8:00 p.m. until 6:00 a.m. Sometimes, the patient has difficulties to fall asleep, has TV set in bedroom. The patient usually sleeps on the back position. Previously, she had extremely loud snoring, but recently after losing weight practically no snoring, but by her , she has episodes of stopped breathing during the sleep. No history of sleep paralysis, cataplexy, or hypnagogic hallucinations. During the day, the patient has problems with memory and irritability. [place] Sleepiness Scale is 9. Usually, the patient does not take naps. PAST MEDICAL HISTORY: Positive for right lung cancer, right breast cancer, hypothyroidism, hyperlipidemia, acid reflux. PAST SURGICAL HISTORY: Right lung resection for treatment of cancer in 2022 and right breast lumpectomy, radiation therapy and chemotherapy in 2010. MEDICATIONS: Thyroid supplement and medications for cancer treatment, the patient does not remember the name. SOCIAL HISTORY: Negative for smoking or using alcohol. FAMILY HISTORY: Headaches. REVIEW OF SYSTEMS: Witnessed episodes of stopped breathing during the sleep. Headaches. Otherwise, negative. No fevers. No double vision. No recent chest pain. No shortness of breath. No abdominal pain. No bleeding episodes. No blood in the urine. No seizure episodes. PHYSICAL EXAMINATION: GENERAL: lady without distress. VITAL SIGNS: BP 148/84, HR 65, RR 18, weight 143.0 pounds, height 4 feet and 11-2/3 inches, BMI 28.3, temperature 97.9, oxygen saturation at room air 99%. HEENT: PERRLA, EOMI, evaluation of oropharynx showed tongue protrudes midline. Oropharynx, extremely low position of soft palate, Mallampati 4. NECK: Supple, no JVD. Thyroid is not palpable. 14.5 inches in circumference. LUNGS: Clear to percussion and to auscultation. Good air exchange. No wheezing or rhonchi. HEART: S1 and S2, regular. No murmurs, gallops, or rubs. ABDOMEN: Soft and nontender. Bowel sounds are present. No organomegaly appreciated. EXTREMITIES: No clubbing or cyanosis. MICROSOFT SYSTEMS ENGINEER: Awake, alert, and oriented x3. Cranial nerves 2 to 7 intact. There is no fasciculation or atrophy noted. No focal deficits observed. IMPRESSION: 1. Witnessed episodes of stopped breathing during the sleep, extremely low position of soft palate, Mallampati 4, history of snoring, obstructive sleep apnea-hypopnea syndrome. 2. Acid reflux. 3. Hypothyroidism. 4. History of headaches. 5. Status post resection of right lung for cancer in 2022. 6. Status post right breast lumpectomy, radiation therapy and chemotherapy in 2010. PLAN: 1. Polysomnography for evaluation of the patient's breathing during the sleep. 2. Following plan after reading sleep study. 3. Sleep hygiene with regular time in bed for at least 7.5 hours. 4. Precautions related to driving. No driving if feeling sleepiness. Thank you very much for referring this patient for consultation. Sincerely, Myron Benavidez MD, PhD, FAASM Diplomat of [place] [employer] Sleep Medicine Board of [place] [employer] Casino Attendant [facility] [place] MMODL / IJN: [id number] /
== END ==
LOC: 3 N SLEEP 14:20
PROVIDERS: ATTEND Internal Medicine
CPT/HCPCS: 99211

== ENCOUNTER → 2024-05-23 | Outpatient (CLI) | payer MEDICARE ==
--- NOTE | 2024-05-23 11:18 | US ---
EXAMINATION TYPE: US extremity nonvasc mass RT DATE OF EXAM: 05/23/2024 COMPARISON: NONE CLINICAL INDICATION: Female, 74 years old with history of C50.411 BREAST CANCER; palpable that has be en growing for months, patient states lump if from fall, PET done in January 2024 mentioned soft tissue l esion in right arm that may be mets, h/o lung CA last year and breast CA years ago TECHNIQUE: Soft tissue arm scan FINDINGS: 5.0 x 3.1 x 2.4cm complex mass with vascularity noted. IMPRESSION: 1. Solid vascular mass right upper extremity. Biopsy recommended. [facility], , 05/23/2024 11:15 AM
== END | disposition home or self-care (01) ==
LOC: RADUSWWP 10:47
PROVIDERS: ATTEND Internal Medicine Hematology & Oncology
DX: C50.411 Malignant neoplasm of upper-outer quadrant of right female breast

== ENCOUNTER 2024-05-25 07:57 | Day surgery (SDC) | payer MEDICARE ==
[2024-05-25 08:35] VITALS: RESP 16; TEMP 98.8
--- NOTE | 2024-05-25 09:15 | US ---
EXAMINATION TYPE: US biopsy soft tissue/muscle DATE OF EXAM: 05/25/2024 9:06 AM CLINICAL INDICATION:Female, 74 years old with history of C50.411 BREAST CANCER; , COMPARISON: None ATTENDING: Dr. Tramaine Chung PROCEDURE: Informed consent was obtained. The risks and benefits of the procedure were discussed with the patien t. The site was marked. Timeout procedure was performed Ultrasound imaging demonstrates right lateral shoulder mass. The patient was prepped, draped in the usual sterile fashion, and locally anesthetized with 1% lidoca ine. 3 x 18-gauge core needle biopsies were obtained.. Samples were sent to the pathology department for further analysis. Patient tolerated the procedure without incident and was sent home in stable condition. IMPRESSION: Successful ultrasound guided core biopsy right shoulder mass. [facility], , 05/25/2024 9:13 AM
[2024-05-25 09:16] VITALS: BP 129/75; PULSE 58
== END 2024-05-25 09:18 | disposition home or self-care (01) ==
LOC: RADPROMAIN 07:57
PROVIDERS: ATTEND Internal Medicine Hematology & Oncology
CPT/HCPCS: 20206; 76942; 88305; 88341; 88342

== ENCOUNTER 2024-06-25 19:35 | Outpatient (CLI) | payer MEDICARE ==
--- NOTE | 2024-06-29 18:19 | P.PCN ---
Description of Procedure: POLYSOMNOGRAPHY REPORT PROCEDURE(S)/DATE(S): Polysomnography 06/25/2024 CLINICAL: Patient has been seen in the sleep center for evaluation of obstructive sleep apnea-hypopnea syndrome. Please see my consultation. Sleep study has been done for evaluation of patient breathing during the sleep. PROCEDURE: The standard montage for clinical polysomnography included the electroencephalogram, the electrooculogram, the mentalis surface electromyography and Lead II cardiography. The respiratory battery consisted of measurements of nasal/buccal air flow, pressure transducer measurements from nose, thoracic and/or abdominal effort and intercostal surface electromyography. Video monitoring has been done to check for any parasomnia events. Nocturnal oxyhemoglobin saturations were obtained by finger oximetry. Step-washington titration with positive airway pressure was utilized to control the respiratory events, if necessary. RESULTS: During the diagnostic sleep study sleep efficiency was significantly decreased to 76.5%. Latency to sleep onset was normal 19.5 min. Sleep architec ture showed stage NI in very high range of 34.3%, Delta sleep was absent 0%, REM sleep was significantly decreased to 15.1%. Respiratory channel showed 0 obstructive apneas, 2 mixed apneas, 0 central apneas, 135 hypopneas with 4% oxygen desaturation and 241 with 3% oxygen saturation with lowest oxygen level 59%. Total apnea hypopnea index was 25.3 with 4% oxygen desaturation and 44.9 with 3% oxygen desaturation. Heart rate was in the range between 50 and 60, average 54. EMG showed 1.8 periodic limb movements per hour with 0 micro-arousals per hour. IMPRESSIONS: 1. Obstructive sleep apnea hypopnea syndrome in moderate to severe range. 2. No significant periodic limb movements have been documented. Please see other impressions from consultation PLAN: 1. The patient will have PAP titration for correction of respiratory abnormalities during the sleep. 2. Watching weight. 3. Sleep hygiene with regular time in bed for at least 7-1/2 hours. 4. No driving if feeling sleepiness. Thank you very much for allowing me to participate in the management of your patient. Sincerely, Myron Benavidez MD, PhD, FAASM. Diplomat of [place] [employer], Sleep Medicine Board by [place] Labor Contractor [facility] [place] cc: Pernell Walsh MD
== END 2024-06-26 05:25 | disposition home or self-care (01) ==
LOC: 3 N SLEEP 19:35
PROVIDERS: ATTEND Internal Medicine
DX: G47.33 Obstructive sleep apnea (adult) (pediatric) (principal); G47.10 Hypersomnia, unspecified; G47.00 Insomnia, unspecified
CPT/HCPCS: 95810

== ENCOUNTER → 2024-07-28 | Outpatient (CLI) | payer MEDICARE ==
--- NOTE | 2024-07-30 15:02 | PE ---
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 Images are reviewed on the computer in the coronal, axial, and sagittal planes. Reconstructed rotating images are created on independent workstation and reviewed on the computer. A non-contrast CT is performed in conjunction with the PET scan. Glucose level 87 mg/dL CT DLP: 642 mGycm, Automated exposure control for dose reduction was used. COMPARISON: CT 12/22/2023, PET/CT 01/24/2024,, MRI: None FINDINGS: Mediastinal SUV mean is 1.7. Hepatic parenchyma SUV mean is 2.3. SKULL BASE AND NECK: Findings described below CHEST, MEDIASTINUM, AND HILAR REGION: Findings described below. No lymphadenopathy. There are scattered pulmonary nodules throughout the lungs largest the superior segment left lower opal ng measuring 9 mm and in the right upper lung measuring 11 mm max SUV below background levels age. Th sulaiman are not significantly changed in size from prior on 01/24/2024. ABDOMEN AND PELVIS: * Conglomerate mass in the pelvis measuring 11.3 x 12.1 cm is heterogenous uptake max SUV on the lef t 5.1. Previously measuring 8.8 x 7.5 cm 01/24/2024. * A mass seen just lateral to the left kidney measuring 40 x 44 mm Max SUV 5.4, previously 2.4 measu ring up to 36 x 41 mm. * Mass near the right kidney slightly inferior and lateral measuring 46 x 40 mm previously 29 x 25 m m Max SUV 2.1, previously 1.9 * Nodule/lymph node near the right renal sinus max SUV 3.4. Measuring 14 mm. MUSCULOSKELETAL STRUCTURES: Suspicious uptake identified throughout the skeletal structures examples include: * Right shoulder musculature max SUV 5.2 previously 2.8 . * left inferior scapula possibly within the muscle max SUV 3.7, new * left glenoid max SUV 6.9, new. * Left side of the spine near T2 is a conglomerate soft tissue mass measuring at least 20 mm Max SUV 6.6 * Left scalp destructive mass measuring 28 mm Max SUV 7.1 Not in the vpcpe-gr-arho on prior. * Mass in the right 10th rib max SUV 4.2. Enlarging in size. * Posterior neck musculature max SUV 6.1, possibly secondary to muscle strain versus metastatic lesi on. * The sacrum demonstrates somewhat diffuse uptake and worse on the right max SUV 8.8 previously 6.4 smaller in size. * Right proximal femur max SUV 5.1., New * L4 vertebral body max SUV 6.8., New * Soft tissue destructive mass just inferior to OTHER CT: Atherosclerosis of the carotid bifurcations. Enlarged thyroid glands bilaterally with incre ased uptake. Scattered soft tissue lesions are seen throughout the subcutaneous soft tissues with FDG activity at or below background levels. Moderate hiatal hernia. Calcifications of the aortic valve. Postsurgical changes of gastric lumen. IMPRESSION: 1. Progression of disease with scattered osseous destructive lesions and a few soft tissue lesions. Additionally the pelvic mass has increased in size. 2. Bilateral perirenal masses with low-level FDG activity which have increased in size. Additional i ntra-abdominal and soft tissue subjacent masses are also present which are suspicious but have low le vels of FDG activity. [facility], , 07/30/2024 3:00 PM
== END | disposition home or self-care (01) ==
LOC: RADPETMAIN 08:46
PROVIDERS: ATTEND Internal Medicine Medical Oncology
DX: C49.8 Malignant neoplasm of overlapping sites of connective and soft tissue (principal); R19.00 Intra-abdominal and pelvic swelling, mass and lump, unspecified site; K44.9 Diaphragmatic hernia without obstruction or gangrene; I70.0 Atherosclerosis of aorta; N28.89 Other specified disorders of kidney and ureter
CPT/HCPCS: 78816; A9552

== ENCOUNTER → 2024-08-15 | Outpatient (CLI) | payer MEDICARE ==
--- NOTE | 2024-08-16 09:59 | CA ---
Transthoracic Echo Report Name: Barbara Phillips Age: 74 Gender: F : 1950 Exam Date: 08/15/2024 17:48 Exam Location: [facility] Ht (in): 60 Wt (lb): 139 Ordering Physician: Belkis Vargas MD Attending/Referring Phys: [id number], Sam Wood Milling Machine Tender Shraddha Snyder RDCS Procedure CPT: Indications: Z01.818 Pre-procedural exam Cardiac Hx: Technical Quality: Fair Contrast 1: Total Dose (mL): Contrast 2: Total Dose (mL): MEASUREMENTS (Male / Female) Normal Values 2D ECHO LV Diastolic Diameter PLAX 4.2 cm 4.2 - 5.9 / 3.9 - 5.3 cm LV Systolic Diameter PLAX 3.4 cm IVS Diastolic Thickness 1.0 cm 0.6 - 1.0 / 0.6 - 0.9 cm LVPW Diastolic Thickness 0.9 cm 0.6 - 1.0 / 0.6 - 0.9 cm LV Relative Wall Thickness 0.4 LVOT Diameter 2.4 cm LA Systolic Diameter LX 4.1 cm 3.0 - 4.0 / 2.7 - 3.8 cm LV Diastolic Volume MOD BP 58.4 cm??? 67 - 155 / 56 - 104 cm??? LV Systolic Volume MOD BP 23.7 cm??? 22 - 58 / 19 - 49 cm??? LV Ejection Fraction MOD BP 59.4 % >= 55 % LV Cardiac Index MOD BP 1239.7 cm???/min???m??? LV Diastolic Volume MOD 4C 68.8 cm??? LV Systolic Volume MOD 4C 25.7 cm??? LV Ejection Fraction MOD 4C 62.7 % LV Cardiac Index MOD 4C 1541.4 cm???/min???m??? LV Diastolic Length 4C 7.6 cm LV Systolic Length 4C 6.5 cm LV Diastolic Volume MOD 2C 49.0 cm??? LV Systolic Volume MOD 2C 21.7 cm??? LV Ejection Fraction MOD 2C 55.7 % LV Cardiac Index MOD 2C 973.5 cm???/min???m??? LV Diastolic Length 2C 7.8 cm LV Systolic Length 2C 6.2 cm LA Volume 43.3 cm??? 18 - 58 / 22 - 52 cm??? LA Volume Index 26.2 cm???/m??? 16 - 28 cm???/m??? M-MODE Aortic Root Diameter MM 3.2 cm AV Cusp Separation MM 1.7 cm DOPPLER AV Peak Velocity 195.7 cm/s AV Peak Gradient 15.3 mmHg LVOT Peak Velocity 126.0 cm/s LVOT Peak Gradient 6.4 mmHg AV Area Cont Eq pk 2.8 cm??? MV Area PHT 2.7 cm??? Mitral E Point Velocity 79.3 cm/s Mitral A Point Velocity 85.8 cm/s Mitral E to A Ratio 0.9 MV Deceleration Time 278.8 ms TR Peak Velocity 160.3 cm/s TR Peak Gradient 10.3 mmHg Right Ventricular Systolic Press 15.3 mmHg FINDINGS Left Ventricle Left ventricular ejection fraction is estimated at 55-60 %. Left ventricular cavity size normal. Left ventricular wall thickness normal. No obvious regional wall motion abnormalities. Right Ventricle Normal right ventricular size and function. Right ventricular systolic pressure within normal limits. Right Atrium Normal right atrial size. No right atrial thrombus or mass seen. Left Atrium Normal left atrial size. No left atrial thrombus or mass present. Mitral Valve Structurally normal mitral valve. Mitral annular calcification. Aortic Valve Thickened aortic valve without stenosis. Trace aortic regurgitation. Tricuspid Valve Structurally normal tricuspid valve. Trace to mild tricuspid regurgitation. Pulmonic Valve Structurally normal pulmonic valve. No pulmonic regurgitation. Pericardium No pericardial or pleural effusion. Aorta Normal size aortic root and proximal ascending aorta. CONCLUSIONS Normal LV size and systolic function. No significant abnormality on the Doppler exam. No pericardial effusion Previewed by: Dr. Britany Meadows MD (Electronically Signed) Final Date: 16 August 2024 09:58
== END | disposition home or self-care (01) ==
LOC: RADECHMAIN 17:19
PROVIDERS: ATTEND Urology
DX: Z01.818 Encounter for other preprocedural examination (principal); I07.1 Rheumatic tricuspid insufficiency; I34.81 Nonrheumatic mitral (valve) annulus calcification
CPT/HCPCS: 93306

== ENCOUNTER → 2024-08-16 | Outpatient (CLI) | payer MEDICARE ==
[2024-08-16 13:46] LABS: Basophils # (A) 0.1 k/uL (0-0.2); Basophils % (A) 1 %; Eosinophils # (A) 0.3 k/uL (0-0.7); Eosinophils % (A) 6 %; HCT 36.7 % (34.0-46.0); HGB 11.8 gm/dL (11.4-16.0); Lymphocytes # (A) 1.4 k/uL (1.0-4.8); Lymphocytes % (A) 24 %; MCH 29.1 pg (25.0-35.0); MCHC 32.1 g/dL (31.0-37.0); MCV 90.6 fL (80.0-100.0); Mean Platelet Volume 6.8; Monocytes # (A) 0.4 k/uL (0-1.0); Monocytes % (A) 7 %; Neutrophils # (A) 3.4 k/uL (1.3-7.7); Neutrophils % (A) 61 %; Platelet Count 303 k/uL (150-450); RBC 4.05 m/uL (3.80-5.40); RDW 12.7 % (11.5-15.5); WBC 5.6 k/uL (3.8-10.6)
[2024-08-16 14:00] LABS: INR 0.9 (<1.2); Prothrombin Time 10.6 sec (10.0-12.5)
[2024-08-16 14:23] LABS: Partial Thromboplastin Time 21.8 sec (22.0-30.0)
== END | disposition home or self-care (01) ==
LOC: LABWHC1 13:19
PROVIDERS: ATTEND Family Medicine
DX: C49.9 Malignant neoplasm of connective and soft tissue, unspecified (principal)
CPT/HCPCS: 36415; 85025; 85610; 85730

== ENCOUNTER 2024-08-21 19:29 | Outpatient (CLI) | payer MEDICARE ==
--- NOTE | 2024-08-23 11:52 | P.PCN ---
Description of Procedure: CLINICAL: Titration with positive air pressure has been done for correction of respiratory abnormalities during sleep. DESCRIPTION OF PROCEDURE: The standard montage for clinical polysomnography included the electroencephalogram, the electrocardiogram, the mentalis surface electromyography and Lead II cardiography. The respiratory battery consisted of measurements of nasal /buccal air flow, pressure transducer measurements from the nose, thoracic and /or abdominal effort and intercostal surface electromyography. Video monitoring has been done to check for any parasomnia events. Nocturnal oxyhemoglobin saturations were obtained by finger oximetry. Step-washington titration with positive airway pressure was utilized to control respiratory events. Raw data of sleep recording has been reviewed and is adequate. RESULTS: Sleep efficiency was normal 90.7%. Latency to sleep onset was normal 19.5 minutes.]. Sleep architecture showed stage N1 was increased to 21.0%, Delta sleep was extremely short 0.2%, REM sleep was short 6.0%. Heart rate was minimum 50 BPM, maximum 59 BPM, average 54 BPM. EMG showed 10.5 periodic limb movements per hour with 0.6 micriarousals per hour. PAP titration have been done with CPAP up to the pressure 13 cm H2O. Patient had problems with CPAP, switched to BPAP. BPAP titrated up to 15/11 cm H2O. The best results were at the pressure 15/11 cm H2O for REM sleep. IMPRESSION: 1. Obstructive sleep apnea hypopnea syndrome mostly on controle with PAP treatment. 2. Very minimal periodic limb movements have been documented, in normal range by today's criteria. Please see other impressions from consultation. PLAN: 1. The patient will have treatment with positive air pressure equipment with the level of pressure AutoBPAP with maximal inspiratory pressure 17, minimal expiratory pressure 6 and pressure support 4 cm H2O and should use it every night for the whole night. 2. Watching weight. 3. Sleep hygiene with regular time in bed for at least 8 hours. 4. No driving if feeling any sleepiness. 5. I will see the patient for follow up visit to explain the results of the test, recommendations, check compliance with treatment and make any necessary adjustment related to mask fitting, pressure and humidification. 6. Please check iron profile including ferritin level. Low level of iron may increase risk for periodic limb movements Thank you very much for allowing me to participate in the management of your patient. Sincerely, Myron Benavidez MD, PhD, FAASM Diplomat of [employer] Sleep Medicine Board of [employer] Seam Sewer [facility] [place] cc: Khan. Pernell RILEY
== END 2024-08-22 05:45 | disposition home or self-care (01) ==
LOC: 3 N SLEEP 19:29
PROVIDERS: ATTEND Internal Medicine
DX: G47.33 Obstructive sleep apnea (adult) (pediatric) (principal); G47.61 Periodic limb movement disorder
CPT/HCPCS: 95811

== ENCOUNTER → 2024-10-04 | Outpatient (CLI) | payer MEDICARE ==
[2024-10-04 13:59] VITALS: BP 124/78; PULSE 81; RESP 16; TEMP 98.3
--- NOTE | 2024-10-04 14:33 | P.PROGSL ---
Subjective DATE: 10/04/2024 FOLLOW UP VISIT. Patient with obstructive sleep apnea hypopnea syndrome return to sleep center for follow-up visit. Recently patient had sleep study which documented obstructive sleep apnea hypopnea syndrome. Patient was initiated on PAP therapy and today is first visit after treatment was started. Patient was not able to use PAP equipment every night for the whole night secondary to mask discomfort and pressure. Goehner sleepiness scale is 7, which is in normal range. I checked information from PAP unit. BPAP unit pressure maximal inspiratory pressure 17, minimal expiratory pressure 6, pressure support 4, average pressure 11.6/7.6 cm H2O. Patient use it for several nights but short period of time. Leak is increased to 31.2 l/m. Patient is using full facemask which cover mouth and goes under the nose Apnea Hypopnea Index is 3.6, which is normal. MEDICATIONS: Please see below During physical exam: Patient is on wheelchair. GENERAL: A pleasant patient without any distress. VITAL SIGNS: Please see below. HEENT: PERRLA, EOMI.low position of soft palate, Mallapati 4 . NECK: Supple. No JVD. LUNGS: Clear to percussion and to auscultation. Good air exchange. No wheezing or rhonchi. HEART: S1, S2 regular. ABDOMEN: Soft and nontender.[] EXTREMITIES: No clubbing or cyanosis. GLASS WASHER AND CARRIER: Awake, alert, and oriented x3. No focal deficit. Impressions: 1. Moderate obstructive sleep apnea-hypopnea syndrome, apnea hypopnea index 25.3. Patient has difficulties with the usage BiPAP secondary to mask and pre ssure. 2. S/p resection of right lung for cancer in 2022. 3. Status post right breast lumpectomy, radiation therapy and chemotherapy in 2010. 4. Acid reflux. 5. Hypothyroidism. 6. History of headaches. I reduced the level of pressure to maximal inspiratory pressure 13 cm of water. Plan: 1. Continue using PAP equipment every night for the whole night. Patient will get nasal pillow mask with chinstrap. 2. To change air filter at least 1-2 times per month. 3. PAP unit should stay lower then position of the head. 4. Advised patient to remove all remaining water from humidifier canister daily and make it dry after each usage. Refill canister with fresh distilled water before each usage. 5. Sleep hygiene with regular time in bed for at least 8 hours. 6. Precautions related to driving. No driving if feel any sleepiness. 7. I will maintain prescription for PAP supplies including mask, tube, filters. 8. Follow up visit in 2 months or earlier if patient has any problems. 9. Watching weight. Thank you very much for allowing me to participate in the management of your patient. Myron Benavidez MD, PhD, FAASM. Diplomat of [place], Sleep Medicine Board by [place] Director Counseling Bureau [facility] [place] cc: Pernell Walsh MD Objective - Vital Signs Vital Signs: Vital Signs Temp 98.3 F 10/04/24 13:59 Pulse 81 10/04/24 13:59 Resp 16 10/04/24 13:59 BP 124/78 10/04/24 13:59 Pulse Ox 99 10/04/24 13:59 FiO2 Home Medications: Home Medications Medication Instructions Recorded Confirmed Type Levothyroxine Sodium [Synthroid] 150 mcg PO SUTUTHSA 08/24/18 05/25/24 History Pravastatin Sodium [Pravachol] 20 mg PO HS 08/24/18 05/23/24 History Omeprazole [PriLOSEC] 40 mg PO AC-BRKFST #90 cap 06/18/20 05/23/24 Rx Letrozole 2.5 mg PO DAILY 01/01/21 05/23/24 History Solifenacin Succinate [Vesicare] 10 mg PO DAILY 08/25/22 05/23/24 History Acetaminophen Tab [Tylenol] 650 mg PO Q4HR PRN tab 08/27/22 05/23/24 Rx
== END ==
LOC: 3 N SLEEP 13:39
PROVIDERS: ATTEND Internal Medicine
DX: G47.33 Obstructive sleep apnea (adult) (pediatric) (principal); K21.9 Gastro-esophageal reflux disease without esophagitis; E03.9 Hypothyroidism, unspecified; Z90.12 Acquired absence of left breast and nipple; Z86.69 Personal history of other diseases of the nervous system and sense organs; Z85.118 Personal history of other malignant neoplasm of bronchus and lung
CPT/HCPCS: 99212

== ENCOUNTER 2024-11-06 09:26 | Emergency (ER) | payer MEDICARE ==
[2024-11-06 10:01] VITALS: TEMP 98
--- NOTE | 2024-11-06 10:34 | ED ---
Abdominal Pain HPI - General Source: patient, RN notes reviewed Mode of arrival: wheelchair Limitations: no limitations <Za Zelaya - Last Filed: 11/06/24 10:33> <Jarod James - Last Filed: 11/06/24 13:17> - General Chief Complaint: Abdominal Pain Stated Complaint: constipation Time Seen by Provider: 11/06/24 10:33 - History of Present Illness Initial Comments: Quick [id number] female presenting for constipation. States her last bowel movement was 8 days ago. Denies abdominal pain, rectal pain, or vomiting. (Za Zelaya) This is a 74-year-old female who presents to the emergency department complaining of constipation for the last 8 days. Patient states she is a chemo patient and she last had chemo approximately 10 days ago. Patient states she has had no abdominal pain or cramping. Patient states she also is not eating or drinking much. Patient denies any back pain. Patient denies any dysuria hematuria urinary frequency. Patient Nuys any fever chills or cough. (Jarod James) - Related Data Home Medications Medication Instructions Recorded Confirmed Levothyroxine Sodium [Synthroid] 150 mcg PO SUTUTHSA 08/24/18 05/25/24 Pravastatin Sodium [Pravachol] 20 mg PO HS 08/24/18 05/23/24 Letrozole 2.5 mg PO DAILY 01/01/21 05/23/24 Solifenacin Succinate [Vesicare] 10 mg PO DAILY 08/25/22 05/23/24 Previous Rx's Medication Instructions Recorded Omeprazole [PriLOSEC] 40 mg PO AC-BRKFST #90 cap 06/18/20 Acetaminophen Tab [Tylenol] 650 mg PO Q4HR PRN tab 08/27/22 Allergies Allergy/AdvReac Type Severity Reaction Status Date / Time No Known Allergies Allergy Verified 11/06/24 10:01 Review of Systems ROS Other: All systems not noted in ROS Statement are negative. <Za Zelaya - Last Filed: 11/06/24 10:33> ROS Other: All systems not noted in ROS Statement are negative. <Jarod James - Last Filed: 11/06/24 13:17> ROS Statement: Those systems with pertinent positive or pertinent negative responses have been documented in the HPI. Past Medical History Past Medical History: Cancer, GERD/Reflux, Hyperlipidemia, Sleep Apnea/CPAP/BIPAP, Thyroid Disorder Additional Past Medical History / Comment(s): Hx right breast cancer in 2018 with lumpectomy. chemo and radiation. Right lung cancer. Hypothyroid. 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 History of Any Multi-Drug Resistant Organisms: None Reported Past Surgical History: Bariatric Surgery, Breast Surgery, Tonsillectomy Additional Past Surgical History / Comment(s): Right breast lumpectomy, sleeve gastrectomy 2014, EGD, bronchoscopy. Partial right lung removal for cancer. Past Anesthesia/Blood Transfusion Reactions: No Reported Reaction Past Psychological History: No Psychological Hx Reported Smoking Status: Never smoker Past Alcohol Use History: None Reported Past Drug Use History: None Reported - Past Family History Mother Family Medical History: Cancer Additional Family Medical History / Comment(s): . Uncertain of the type of cancer she had. Father Family Medical History: Dementia Additional Family Medical History / Comment(s): . Brother(s) Family Medical History: Myocardial Infarction ([place]) Additional Family Medical History / Comment(s): . Sister(s) Family Medical History: Cancer Additional Family Medical History / Comment(s): . Uncertain of the type of cancer. <Za Zelaya - Last Filed: 11/06/24 10:33> General Exam Limitations: no limitations <Za Zelaya - Last Filed: 11/06/24 10:33> <Jarod James - Last Filed: 11/06/24 13:17> - General Exam Comments Initial Comments: Visual Physical Exam Vital signs reviewed General: Well-appearing, nontoxic, no acute distress. Head: Normocephalic, atraumatic Eyes: PERRLA, EOMI ENT: Airway patent Chest: Nonlabored breathing Skin: No visual rash, normal skin tone Neuro: Alert and oriented 3 Musculoskeletal: No gross abnormalities (Za Zelaya) GENERAL: Patient is cachectic in appearance. Patient is nontoxic and well-hydrated and is in no acute distress. ENT: Neck is soft and supple. No significant lymphadenopathy is noted. Oropharynx is clear. Moist mucous membranes. Neck has full range of motion without eliciting any pain. EYES: The sclera were anicteric and conjunctiva were pink and moist. Extraocular movements were intact and pupils were equal round and reactive to light. Eyelids were unremarkable. ABDOMEN: Soft and nontender with normal bowel sounds. SKIN: Skin is clear with no lesions or rashes and otherwise unremarkable. NEUROLOGIC: Patient is alert and oriented x3. Cranial nerves II through XII are grossly in tact. Motor and sensory are also intact. Normal speech, volume and content. Symmetrical smile. MUSCULOSKELETAL: Normal extremities with adequate strength and full range of motion. LYMPHATICS: No significant lymphadenopathy is noted PSYCHIATRIC: Normal psychiatric evaluation. (Jarod James) Course Vital Signs 11/06/24 09:58 Temperature 98 F Pulse Rate 95 Respiratory 20 Rate Blood Pressure 122/96 O2 Sat by Pulse 97 Oximetry Medical Decision Making <Za Zelaya - Last Filed: 11/06/24 10:33> <Jarod James - Last Filed: 11/06/24 13:17> - Medical Decision Making I completed the quick note portion of this chart signed Za Zelaya PA-C (Za Zelaya) Was pt. sent in by a medical professional or institution (ALLAN Burton, [employer] SUPERVISOR, urgent care, hospital, or intermediate...) When possible be specific @ -No Did you speak to anyone other than the patient for history (EMS, parent, family, police, friend...)? What history was obtained from this source @ -No Did you review nursing and triage notes (agree or disagree)? Why? @ -I reviewed and agree with nursing and triage notes Were old charts reviewed (outside hosp., previous admission, EMS record, old EKG, old radiological studies, urgent care reports/EKG's, intermediate records)? Report findings @ -No old charts were reviewed Differential Diagnosis? @ -Differential Abdominal Pain Women: Appendicitis, Cholecystitis, diverticulosis, ischemic bowel, pancreatitis, hepatitis, UTI, gastroenteritis, AAA, incarcerated hernia, bowel obstruction, constipation, inflammatory bowel, hepatitis, peptic ulcer disease, splenic infarction, perforated viscus, vulvitis, ovarian torsion, PID, kidney stone, placenta abruption, this is not meant to be an all-inclusive list EKG interpreted by me (3pts min.). @ -As above X-rays interpreted by me (1pt min.). @ -B shows no acute abnormality CT interpreted by me (1pt min.). @ -None done U/S interpreted by me (1pt. min.). @ -None done What testing was considered but not performed or refused? (CT, X-rays, U/S, jazzy robles)? Why? @ -None What meds were considered but not given or refused? Why? @ -None Did you discuss the management of the patient with other professionals (professionals i.e. , PA, [employer] SUPERVISOR, lab, RT, psych nurse, social services aide, superintendent of generation, teacher, money position officer, lead case manager)? Give summary @ -No Was smoking cessation discussed for >3mins.? @ -No Was critical care preformed (if so, how long)? @ -No Were there social determinants of health that impacted care today? How? (Homelessness, low income, unemployed, alcoholism, drug addiction, transportation, low edu. Level, literacy, decrease access to med. care, assisted, rehab)? @ -No Was there de-escalation of care discussed even if they declined (Discuss DNR or withdrawal of care, Hospice)? DNR status @ -No What co-morbidities impacted this encounter? (DM, HTN, Smoking, COPD, CAD, Cancer, CVA, ARF, Chemo, Hep., AIDS, mental health diagnosis, sleep apnea, morbid obesity)? @ -None Was patient admitted / discharged? Hospital course, mention meds given and route, prescriptions, significant lab abnormalities, going to OR and other pertinent info. @ -Alcohol patient was having no abdominal pain on palpation she had no abdominal pain KUB showed no acute constipation so patient be discharged Undiagnosed new problem with uncertain prognosis? @ -No Drug Therapy requiring intensive monitoring for toxicity (Heparin, Nitro, Insulin, Cardizem)? @ -No Were any procedures done? @ -No Diagnosis/symptom? @ -Normal abdominal exam Acute, or Chronic, or Acute on Chronic? @ -Acute Uncomplicated (without systemic symptoms) or Complicated (systemic symptoms)? @ -Uncomplicated Side effects of treatment? @ -No Exacerbation, Progression, or Severe Exacerbation? @ -No Poses a threat to life or bodily function? How? (Chest pain, [place], [place], pneumonia, PE, COPD, DKA, ARF, appy, cholecystitis, CVA, Diverticulitis, Homicidal, Suicidal, threat to staff... and all critical care pts) @ -No (Jarod James) Disposition <Za Zelaya - Last Filed: 11/06/24 10:33> Is patient prescribed a controlled substance at d/c from ED?: No Time of Disposition: 13:17 <Jarod James - Last Filed: 11/06/24 13:17> Clinical Impression: Infrequent bowel movements Disposition: HOME SELF-CARE Condition: Good Referrals: Pernell Walsh MD [Primary Care Provider] - 1-2 days
--- NOTE | 2024-11-06 10:50 | XR ---
EXAMINATION TYPE: XR KUB DATE OF EXAM: 11/06/2024 COMPARISON: PET/CT 07/28/2024 HISTORY: Pain TECHNIQUE: Single supine KUB image of the abdomen is obtained FINDINGS: Small bowel demonstrates no evidence for dilatation or air fluid levels. Gas and fecal material is seen in non-distended colon. No convincing evidence for pneumoperitoneum. No unusual calcifications. The lung bases are clear. No acute osseous abnormality. Degenerative disc disease of the lower lumbar spine. Postsurgical boykin es with partial visualization of right proximal femur intramedullary carlos and fixation screw. Degenera tive changes of the pubic symphysis. IMPRESSION: Overall nonobstructive bowel gas pattern. No significant stool burden. [facility], , 11/06/2024 10:48 AM
[2024-11-06 13:32] VITALS: BP 116/56; PULSE 78; RESP 18
== END 2024-11-06 13:33 | disposition home or self-care (01) ==
LOC: EC 09:26
DX: K59.00 Constipation, unspecified (principal)
CPT/HCPCS: 74018; 99284

== ENCOUNTER → 2024-11-27 | Outpatient (CLI) | payer MEDICARE ==
[2024-11-27 19:25] LABS: Basophils # (A) 0.02 X 10*3/uL (0.00-0.10); Basophils % (A) 0.6 %; Eosinophils # (A) 0 X 10*3/uL (0.04-0.35); Eosinophils % (A) 0 %; HCT 29.5 % (37.2-46.3); HGB 9.5 g/dL (12.0-15.0); Lymphocytes # (A) 0.38 X 10*3/uL (0.90-5.00); Lymphocytes % (A) 12.3 %; MCH 27.7 pg (27.0-32.0); MCHC 32.2 g/dL (32.0-37.0); Monocytes # (A) 0.22 X 10*3/uL (0.20-1.00); Monocytes % (A) 7.1 %; NRBC Per 100 WBC 0 X 10*3/uL (0.00-0.01); Neutrophils # (A) 2.35 X 10*3/uL (1.80-7.70); Neutrophils % (A) 76.1 %; Platelet Count 89 X 10*3/uL (140-440); RBC 3.43 X 10*6/uL (4.10-5.20); Toxic Granulation 2+ (None Seen); WBC 3.09 X 10*3/uL (4.50-10.00)
== END | disposition home or self-care (01) ==
LOC: LABWHC1 15:29
PROVIDERS: ATTEND Student in an Organized Health Care Education/Training Program
DX: C49.9 Malignant neoplasm of connective and soft tissue, unspecified (principal)
CPT/HCPCS: 36415; 85025

== ENCOUNTER → 2024-12-27 | Outpatient (CLI) | payer MEDICARE ==
[2024-12-27 15:24] LABS: ALT 10 U/L (8-44); AST 25 U/L (13-35); Albumin/Globulin Ratio 1.82 Ratio (1.60-3.17); Alkaline Phosphatase 101 U/L (41-126); BUN/Creat Ratio 24.17 Ratio (12.00-20.00); Blood Urea Nitrogen 14.5 mg/dL (9.0-27.0); Carbon Dioxide 25.2 mmol/L (21.6-31.8); Chloride 101 mmol/L (96-109); Creatine Kinase 56 U/L (26-186); Globulin 2.2 g/dL (1.6-3.3); Glucose 120 mg/dL (70-110); Potassium 3.8 mmol/L (3.5-5.5); Sodium 140 mmol/L (135-145); Total Bilirubin 0.3 mg/dL (0.3-1.2); Total Protein 6.2 g/dL (6.2-8.2)
[2024-12-27 16:58] LABS: Anisocytosis (M) 2+ (None Seen); Basophils # (M) 0 X 10*3/uL (0.00-0.10); Elliptocytes 2+ (None Seen); Eosinophils # (M) 0 X 10*3/uL (0.04-0.35); HCT 30.9 % (37.2-46.3); HGB 9.8 g/dL (12.0-15.0); Lymphocytes # (M) 0.67 X 10*3/uL (0.90-5.00); MCH 29.9 pg (27.0-32.0); MCHC 31.7 g/dL (32.0-37.0); MCV 94.2 FL (80.0-97.0); Metamyelocytes % 3 % (0-0); Monocytes # (M) 0.34 X 10*3/uL (0.20-1.00); Myelocytes % 3 % (0-0); NRBC Per 100 WBC 0 X 10*3/uL (0.00-0.01); Neutrophils # (M) 14.83 X 10*3/uL (1.80-7.70); Neutrophils % (M) 88 %; Platelet Count 475 X 10*3/uL (140-440); RBC 3.28 X 10*6/uL (4.10-5.20); RDW 21.8 % (11.5-14.5); WBC 16.85 X 10*3/uL (4.50-10.00)
== END | disposition home or self-care (01) ==
LOC: LABWHC1 10:22
PROVIDERS: ATTEND Family Medicine
DX: C49.9 Malignant neoplasm of connective and soft tissue, unspecified (principal)
CPT/HCPCS: 36415; 80053; 82550; 85025

== ENCOUNTER → 2025-01-18 | Outpatient (CLI) | payer MEDICARE ==
[2025-01-18 16:35] LABS: Prothrombin Time 10.8 sec (10.0-12.5)
[2025-01-19 02:16] LABS: Basophils # (A) 0.12 X 10*3/uL (0.00-0.10); Basophils % (A) 0.7 %; Eosinophils # (A) 0 X 10*3/uL (0.04-0.35); Eosinophils % (A) 0 %; HGB 8.3 g/dL (12.0-15.0); Lymphocytes # (A) 0.36 X 10*3/uL (0.90-5.00); MCH 30.6 pg (27.0-32.0); MCHC 30.7 g/dL (32.0-37.0); MCV 99.6 FL (80.0-97.0); Mean Platelet Volume 9.1 FL (9.5-12.2); Monocytes # (A) 1.11 X 10*3/uL (0.20-1.00); Monocytes % (A) 6.1 %; NRBC Per 100 WBC 0 X 10*3/uL (0.00-0.01); Neutrophils % (A) 88.4 %; Platelet Count 473 X 10*3/uL (140-440); RBC 2.71 X 10*6/uL (4.10-5.20); WBC 18.31 X 10*3/uL (4.50-10.00)
== END | disposition home or self-care (01) ==
LOC: LABWHC1 15:44
PROVIDERS: ATTEND Student in an Organized Health Care Education/Training Program
DX: C49.9 Malignant neoplasm of connective and soft tissue, unspecified (principal)
CPT/HCPCS: 36415; 85025; 85610